=== PATIENT | male | born 1950 | race Caucasian/White ===

== ENCOUNTER 2019-09-23 18:38 | Inpatient (IN) | payer MEDICARE, OTHER ==
[~2019-09-23] VITALS: Ht 177.8 cm; Wt 86.2 kg
[2019-09-23] MEDS ORDERED: LISINOPRIL10 MG PO (19:10)
[2019-09-23] MEDS ORDERED: PRED FORTE (19:10)
[2019-09-23] MEDS ORDERED: METOPROLOL TART50 MG PO (19:10)
[2019-09-23] MEDS ORDERED: TRILIPIX135 MG PO (19:10)
[2019-09-23] MEDS ORDERED: PRAVASTATIN SOD40 MG PO (19:10)
[2019-09-23] MEDS ORDERED: ACYCLOVIR200 MG PO (19:10)
[2019-09-23] MEDS ORDERED: CENTRUM MEN'S1 EACH (19:10)
[2019-09-23] MEDS ORDERED: VITAMIN D32000 UNI1 (19:10)
[2019-09-23] MEDS ORDERED: DIATRIZOATE MEGL/DIATRIZOA SOD 30 ML BTL PO ONE (19:20)
[2019-09-23] MEDS ORDERED: ONDANSETRON HCL INJ 2MG/ML 2ML 2 MG/ML VIAL IV ONE (19:21)
[2019-09-23] MEDS ORDERED: SODIUM CHLORIDE 0.9% 1000ML 1,000 ML ONE (19:28)
[2019-09-23] MEDS ORDERED: ONDANSETRON HCL INJ 2MG/ML 2ML 2 MG/ML VIAL ONE (19:28)
[2019-09-23] MEDS ORDERED: SODIUM CHLORIDE 0.9% 1000ML 1,000 ML IV ONE (19:30)
[2019-09-23 19:47] LABS: BASOPHILS % 0.2 % (0.0-1.0); EOSINOPHILS % 0.3 % (0.0-6.0); HEMATOCRIT 39.7 % (38.2-49.6); HEMOGLOBIN 13.3 g/dL (14.0-18.0); LYMPHOCYTES # (AUTO) 0.7 (1.0-3.2); MEAN CORPUSCULAR HEMOGLOBIN 29.1 pg (28-32); MEAN CORPUSCULAR HGB CONC 33.5 g/dL (31-35); MEAN CORPUSCULAR VOLUME 86.9 fL (81-99); MONOCYTES # (AUTO) 0.6 (0.2-0.8); MONOCYTES % 6.8 % (4.4-11.3); NEUTROPHILS # (AUTO) 8.1 (2.1-6.9); NEUTROPHILS % 85.5 % (38.7-80.0); PLATELET COUNT 343 x10e3/uL (140-360); RED BLOOD COUNT 4.57 x10e6/uL (4.3-5.7); RED CELL DISTRIBUTION WIDTH 13.3 % (11.7-14.4)
[2019-09-23 20:02] LABS: ALANINE AMINOTRANSFERASE 21 IU/L (0-55); ALBUMIN 4.4 g/dL (3.5-5.0); ALBUMIN/GLOBULIN RATIO 1.4 (0.8-2.0); ALKALINE PHOSPHATASE 40 IU/L (40-150); ANION GAP 16.9 mmol/L (8-16); BLOOD UREA NITROGEN 24 mg/dL (7-26); BUN/CREATININE RATIO 13 (6-25); CALCIUM 10.4 mg/dL (8.4-10.2); CARBON DIOXIDE 20 mmol/L (22-29); CHLORIDE 103 mmol/L (98-107); CREATINE KINASE 444 IU/L (30-200); CREATININE, SERUM 1.79 mg/dL (0.72-1.25); EST GLOMERULAR FILTRATION RATE 38 ML/MIN (60-); GLUCOSE 170 mg/dL (74-118); POTASSIUM 3.9 mmol/L (3.5-5.1); SODIUM 136 mmol/L (136-145)
[2019-09-23 20:14] LABS: CLARITY,URINE SL CLOUDY (CLEAR); COLOR,URINE YELLOW (YELLOW); LEUKOCYTE ESTERASE ,URINE NEGATIVE (NEGATIVE); NITRITE,URINE NEGATIVE (NEGATIVE); URINE UROBILINOGEN 0.2 mg/dL (0.2 - 1)
[2019-09-23 20:15] LABS: BILIRUBIN,URINE NEGATIVE (NEGATIVE); KETONES,URINE NEGATIVE (NEGATIVE); PROTEIN,URINE DIPSTICK NEGATIVE (NEGATIVE)
[2019-09-23 20:25] LABS: BACTERIA,URINE FEW /HPF; EPITHELIAL CELLS,URINE FEW /LPF; MUCUS,URINE MODERATE (RARE)
--- NOTE | 2019-09-23 20:48 | Diagnostic Imaging Report ---
CT Abdomen And Pelvis with Intravenous Contrast INDICATION: Abdominal pain, ileostomy 9 years, total colectomy for ulcerative colitis, decreased stomal output. ^ABD PAIN ^[id number] ^2029 TECHNIQUE: Thin collimation axial images obtained from the diaphragm to the level of the pubic symphysis following the uneventful administration of 100 cc of low osmolar, nonionic intravenous contrast. Oral contrast was administered. Dose reduction techniques used: Automated exposure control, adjustment of the mAs and/or kVp according to patient size, standardized low-dose protocol, and/or iterative reconstruction technique. RADIATION DOSE: Total DLP: 443.57 mGy*cm Estimated effective dose: (DLP x 0.015 x size factor) mSv CTDIvol has been reviewed. It is below the limits set by the Radiation Protocol Committee (RPC). COMPARISON: None. ABDOMEN FINDINGS: Lung Bases: Clear. The visualized portions of the mediastinum are normal.. Liver: Normal attenuation. No evidence for mass. Gallbladder: Absent. No biliary ductal dilatation. Pancreas: Normal attenuation without mass or ductal dilatation. Spleen: Normal in size. No evidence of mass.. Adrenal Glands: No evidence for mass. Kidneys: Right: Normal enhancement. No soft tissue mass. No hydronephrosis. Left: Normal enhancement. No soft tissue mass. No hydronephrosis. Lymph Nodes: No enlarged abdominal or periaortic lymph nodes. Aorta: Normal in diameter with scattered calcifications PELVIS FINDINGS: Bowel: Stomach: Contains enteric contrast and is normal. Small Bowel: Enteric contrast reaches the mid small bowel. Distal small bowel loops leading to the stoma are distended with fluid to a diameter 2.8 cm. No mural thickening or abnormal mural enhancement. A parastomal hernia contains numerous small bowel loops. The small bowel loops are also distended with inflammation of the small bowel mesentery. No inspissated enteric contents. Large Bowel: Absent. Bladder: Normal. Prostate gland is mildly enlarged Peritoneum/retroperitoneum: No free fluid or fluid collection. Bones: Mild degenerative changes of the spine. There is a bone island in the left seventh rib. Soft tissues: Right lower quadrant ostomy with small bowel containing parastomal hernia. IMPRESSION: 1. Small bowel containing right lower quadrant parastomal hernia. Small bowel loops within the hernia and proximal to the hernia are distended with inflammation of the mesentery suggestive of partial small bowel obstruction. 2. Total colectomy and cholecystectomy. 3. Prostate hypertrophy. Signed by: Dr. Yared Winston MD on 09/23/2019 8:45 PM
[2019-09-23] MEDS ORDERED: ONDANSETRON HCL INJ 2MG/ML 2ML 2 MG/ML VIAL IV PRN (21:15)
[2019-09-23] MEDS ORDERED: MORPHINE SULFATE INJ 4 MG/ML INJ 1ML IV PRN (21:15)
[2019-09-23] MEDS ORDERED: BENZOCAINE 20% SPR 60 ML CAN MT ONE (21:30)
[2019-09-23] MEDS ORDERED: BENZOCAINE/TETRACAINE/BUTAMBEN AERO SPRAY 56 GM CAN ONE (21:31)
[2019-09-23] MEDS: SODIUM CHLORIDE 0.9% 250ML IRRIG IR SCH (21:41)
[2019-09-23] MEDS ORDERED: SODIUM CHLORIDE 0.9% 50ML 50 ML ONE (22:32)
[2019-09-23] MEDS ORDERED: IOPAMIDOL 370 MG/ML 200 ML INFUS..BTL INJ ONE (22:33)
--- NOTE | 2019-09-23 23:58 | NUR ---
patient placed in hospital bed for comfort
[2019-09-24] MEDS ORDERED: D5NS/KCL 20MEQ 1,000 ML IV ONE (00:15)
[2019-09-24] MEDS ORDERED: MORPHINE SULFATE 2 MG/ML SYR 1ML IV PRN (00:15)
[2019-09-24] MEDS: SODIUM CHLORIDE 0.9% 250ML IRRIG IR SCH ×6 (01:48→20:48)
[2019-09-24] MEDS: MORPHINE SULFATE INJ 4 MG/ML INJ 1ML IV PRN ×4 (02:40→15:30)
[2019-09-24] MEDS ORDERED: METOPROLOL TARTRATE INJ 1 MG/ML VIAL IV PRN (07:00)
--- NOTE | 2019-09-24 07:00 | NUR ---
medication administratrion clarification morphine sulfate 4mg iv given at 0244 12/10, pain scale 9/10, adult scale. medication reassesment done 0310, pain scale 4/10, adult scale.
--- NOTE | 2019-09-24 07:09 | NUR ---
REPORT GIVEN TO JACI BRUNO
--- NOTE | 2019-09-24 07:38 | NUR ---
assumed care of pt. Pt is requesting pain meds and c/o feeling warm at this time
[2019-09-24] MEDS: ONDANSETRON HCL INJ 2MG/ML 2ML 2 MG/ML VIAL IV PRN ×2 (07:55→15:30)
[2019-09-24] MEDS: PIPERACILLIN/TAZO 2.25 GM 50 ML IV SCH ×3 (07:55→20:48)
--- OUTSIDE RECORDS SUMMARY | 2019-09-24 08:32 | XMS REPORT ---
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 Allergies, Adverse Reactions, Alerts This patient has no known allergies or adverse reactions. Medications This patient has no known medications. Results Test Description Test Time Test Comments Text Results Atomic Results Result Comments CT ABDOMEN/PELVIS W 2019-09-23 20:39:00 [place] [address] Patient Name: ANEL LOPEZ MR #: [id number] : 1950 Age/Sex: 69/M Req #: [id number] [facility] Physician: Ordered by: SAIRA KENNEDY MD Report #: [id number] Location: ER Room/Bed: Procedure: [id number] CT/CT ABDOMEN/PELVIS W Exam Date: 09/23/19 Exam Time: 2029 REPORT STATUS: Signed CT Abdomen And Pelvis with Intravenous Contrast IN DICATION: Abdominal pain, ileostomy 9 years, total colectomy for ulcerative colitis, decreased stomal output. ABD PAIN [id number] TECHNIQUE: Thin collimation axial images obtained from the diaphragm to the level of the pubic symphysis following the uneventful administration of 100 cc of low osmolar, nonionic intravenous contrast. Oral contrast was administered. Dose reduction techniques used: Automated exposure control, adjustment of the mAs and/or kVp according to patient size, standardized low-dose protocol, and/or iterative reconstruction technique. RADIATION DOSE: Total DLP: 443.57 mGy*cm Estimated effective dose: (DLP x 0.015 x size factor) mSv CTDIvol has been reviewed. It is below the limits set by the Radiation Protocol Committee (RPC). COMPARISON: None. ABDOMEN FINDINGS: Lung Bases: Clear. The visualized portions of the mediastinum are normal.. Liver: Normal attenuation. No evidence for mass. Gallbladder: Absent. No biliary ductal dilatation. Pancreas: Normal attenuation without mass or ductal dilatation. Spleen: Normal in size. No evidence of mass.. Adrenal Glands: No evidence for mass. Kidneys: Right: Normal enhancement. No soft tissue mass. No hydronephrosis. Left: Normal enhancement. No soft tissue mass. No hydronephrosis. Lymph Nodes: No enlarged abdominal or periaortic lymph nodes. Aorta: Normal in diameter with scattered calcifications PELVIS FINDINGS: Bowel: Stomach: Contains enteric contrast and is normal. Small Bowel: Enteric contrast reaches the mid small bowel. Distal small bowel loops leading to the stoma are distended with fluid to a diameter 2.8 cm. No mural thickening or abnormal mural enhancement. A parastomal hernia contains numerous small bowel loops. The small bowel loops are also distended with inflammation of the small bowel mesentery. No inspissated enteric contents. Large Bowel: Absent. Bladder: Normal. Prostate gland is mildly enlarged Peritoneum/retroperitoneum: No free fluid or fluid collection. Bones: Mild degenerative changes of the spine. There is a bone island in the left seventh rib. Soft tissues: Right lower quadrant ostomy with small bowel containing parastomal hernia. IMPRESSION: 1. Small bowel containing right lower quadrant parastomal hernia. Small bowel loops within the hernia and proximal to the hernia are distended with inflammation of the mesentery suggestive of partial small bowel obstruction. 2. Total colectomy and cholecystectomy. 3. Prostate hypertrophy. Signed by: Dr. Kerri Winston MD on 09/23/2019 8:45 PM Dictated By: KERRI WINSTON MD 44 Transcribed By: JACI on 09/23/192044 COPY TO: SAIRA KENNEDY MD
[2019-09-24] MEDS ORDERED: FAMOTIDINE 20 MG/2 ML VIAL IV SCH (09:00)
[2019-09-24] MEDS ORDERED: SODIUM CHLORIDE 0.9% IV SCH ×2 (09:00→11:00)
[2019-09-24] MEDS ORDERED: ACYCLOVIR SODIUM IV SCH ×2 (09:00→11:00)
[2019-09-24 11:08] VITALS: BP 152/75
[2019-09-24] MEDS: KCL 20MEQ/.9 SOD CHL 1,000 ML IV SCH ×2 (12:13→18:06)
[2019-09-24] MEDS ORDERED: ABILIFY5 MG PO (13:50)
--- NOTE | 2019-09-24 14:13 | History and Physical ---
A 69-year-old male comes in with abdominal pain. HISTORY OF PRESENTING ILLNESS: This is a 69-year-old, Mr. Dale Arita with history of ulcerative colitis, status post ileostomy with colon resection, was in usual state of health until the patient had [place], [place] working, came back yesterday and ate at a barbecue place and immediately felt abdominal pain. The patient's pain was described as 8/10 in intensity. The patient came in and was found to have a small bowel obstruction and the patient admitted for the same. PAST MEDICAL HISTORY: History of ulcerative colitis, history of hypertension, history of atrial fibrillation, history of hyperlipidemia, and history of hypertension. MEDICATIONS: He takes at home are acyclovir 400 mg twice a day, cholecalciferol with vitamin D 2000 international units daily, Trilipix 135 mg daily, lisinopril 20 mg daily, metoprolol 50 mg 3 times a day, and the patient also takes pravastatin 40 mg daily. PAST SURGICAL HISTORY: History of pancolectomy with ileostomy. The patient has been followed up with colorectal surgeons downtown. The patient also sees Dr. Martínez for his ulcerative colitis. The patient's other surgical history includes tonsillectomy and cholecystectomy also. ALLERGIES: NO KNOWN DRUG ALLERGIES. REVIEW OF SYSTEMS: Negative for chest pain. No shortness of breath. Positive for some nausea. No vomiting. No diarrhea and no constipation. No bowel movements due to ileostomy. No diplopia. No blurry vision. PHYSICAL EXAMINATION: VITAL SIGNS: Temperature is 98.9, pulse 86, respirations of 18, blood pressure is 145/69, and pulse oximetry of 100%. HEENT: Normocephalic and atraumatic. NG tube in place. CVS: S1 and S2 normal. Regular rhythm. ABDOMEN: Tenderness in the peristomal area and also bowel sounds are very diminished. EXTREMITIES: No clubbing. No cyanosis. No edema. IMAGING STUDIES: Abdominal CT pelvis shows a small bowel containing right lower quadrant parastomal hernia, small bowel loops with hernia and proximal to intestine with inflammation of mesentery, suggestive of partial small bowel obstruction. Total colectomy and cholecystectomy, prostatic hypertrophy noticed. LABORATORY VALUES: White count is 9.43, hemoglobin of 13.3, and hematocrit of 39.7. Chemistry shows sodium of 136, potassium of 3.9, BUN of 24, creatinine of 1.79, glucose of 170, and kinase was 444. Troponin was negative. CK-MB was slightly elevated and lipase of 27. ASSESSMENT: A 69-year-old male with small bowel obstruction and parastomal hernia, history of ileostomy, history of hypertension and atrial fibrillation, and acute kidney injury. PLAN: Hydration was ongoing. The patient will be put on some metoprolol IV 2.5 mg 3 times a day for coverage for blood pressure. We will continue with NG tube. Consult with Dr. Bradly Crowe will be done. Further recommendation per clinical course. We will continue to monitor the patient. Also, DVT prophylaxis will be applied. Further recommendation per clinical course. We will continue to monitor the patient. MD MARI MelendezJ/MODL /[id number]
--- NOTE | 2019-09-24 16:24 | NUR ---
ARRIVED VIA FROM ER, AA&OX3, RA, NGT TO LIWS, PT DENIES PAIN AT THIS TIME, CALL LIGHT WITHIN REACH
[2019-09-24 16:43] VITALS: BP 183/86
[2019-09-24] MEDS: METOPROLOL TARTRATE INJ 1 MG/ML VIAL IV SCH (17:55)
--- NOTE | 2019-09-24 18:30 | NUR ---
MD Waylon PINA INTO SEE PT, DISCUSSED POC
--- NOTE | 2019-09-24 19:19 | NUR ---
IV TO L AC INFILTRATED, 2 ATTEMPTS FOR NEW IV, NO SUCCESS, WILL NOTIFY CHARGE
[2019-09-24 19:45] VITALS: BP 172/78
[2019-09-24 20:00] VITALS: BP 172/78
[2019-09-24] MEDS: FAMOTIDINE 20 MG/2 ML VIAL IV SCH (20:48)
[2019-09-24] MEDS: ACYCLOVIR SODIUM IV SCH (23:27)
[2019-09-24] MEDS: SODIUM CHLORIDE 0.9% IV SCH (23:27)
[2019-09-25] VITALS (8 sets, daily range): BP systolic 117–170; BP diastolic 68–85
[2019-09-25] MEDS: PIPERACILLIN/TAZO 2.25 GM 50 ML IV SCH ×4 (01:23→20:19)
[2019-09-25] MEDS: KCL 20MEQ/.9 SOD CHL 1,000 ML IV SCH ×3 (01:23→21:30)
[2019-09-25] MEDS: SODIUM CHLORIDE 0.9% 250ML IRRIG IR SCH ×6 (01:23→21:25)
[2019-09-25] MEDS: METOPROLOL TARTRATE INJ 1 MG/ML VIAL IV SCH ×4 (01:23→17:10)
[2019-09-25 06:21] LABS: BASOPHILS % 0.5 % (0.0-1.0); HEMOGLOBIN 13.6 g/dL (14.0-18.0); LYMPHOCYTES # (AUTO) 0.6 (1.0-3.2); LYMPHOCYTES % 15.5 % (18.0-39.1); MEAN CORPUSCULAR HEMOGLOBIN 28.5 pg (28-32); MEAN CORPUSCULAR HGB CONC 32.4 g/dL (31-35); MEAN CORPUSCULAR VOLUME 88.1 fL (81-99); MONOCYTES # (AUTO) 1.2 (0.2-0.8); MONOCYTES % 30.5 % (4.4-11.3); NEUTROPHILS # (AUTO) 2.1 (2.1-6.9); NEUTROPHILS % 52.2 % (38.7-80.0); PLATELET COUNT 294 x10e3/uL (140-360); RED BLOOD COUNT 4.77 x10e6/uL (4.3-5.7); RED CELL DISTRIBUTION WIDTH 13.9 % (11.7-14.4)
[2019-09-25 06:41] LABS: ALANINE AMINOTRANSFERASE 21 IU/L (0-55); ALBUMIN 3.3 g/dL (3.5-5.0); ALKALINE PHOSPHATASE 32 IU/L (40-150); ANION GAP 14.2 mmol/L (8-16); BLOOD UREA NITROGEN 16 mg/dL (7-26); BUN/CREATININE RATIO 14 (6-25); CARBON DIOXIDE 22 mmol/L (22-29); CHLORIDE 110 mmol/L (98-107); CREATININE, SERUM 1.13 mg/dL (0.72-1.25); EST GLOMERULAR FILTRATION RATE > 60 ML/MIN (60-); GLUCOSE 145 mg/dL (74-118); POTASSIUM 4.2 mmol/L (3.5-5.1); SODIUM 142 mmol/L (136-145)
--- NOTE | 2019-09-25 08:31 | Diagnostic Imaging Report ---
EXAM: ABDOMEN ACUTE SERIES W/PA CXR DATE: 09/25/2019 8:00 AM INDICATION: Small bowel obstruction COMPARISON: CT abdomen/pelvis from 09/23/2019 FINDINGS: The trachea is midline. The lungs are symmetrically expanded without evidence for large focal consolidation, pneumothorax, or significant pleural effusion. The cardiomediastinal silhouette is within normal limits. Enteric tube identified coursing below the diaphragm with distal tip terminating within the right midabdomen at the expected level of the pylorus/proximal duodenum. Mildly distended air-filled loops small bowel identified within the mid abdomen. No intraperitoneal free air is appreciated. Cholecystectomy clips noted within the right upper quadrant. High density material noted within the urinary bladder] reflecting excreted contrast from the recent prior CT examination. No acute osseous abnormality identified. IMPRESSION: No acute cardiopulmonary process identified. Mildly distended air-filled loops of small bowel identified within the mid abdomen compatible with patient's history of bowel obstruction. Signed by: Dr. Bonifacio Salguero MD on 09/25/2019 8:28 AM
[2019-09-25] MEDS: FAMOTIDINE 20 MG/2 ML VIAL IV SCH ×2 (09:01→21:25)
[2019-09-25] MEDS: ENALAPRILAT IV INJ 1.25 MG/ML VIAL IV SCH ×2 (09:02→17:09)
--- NOTE | 2019-09-25 09:33 | Progress Note ---
DATE: 09/25/2019 SUBJECTIVE: 69-year-old male that comes in with suspected small-bowel obstruction. The patient is currently having an NG tube. Pain is better. The patient's urine output is comparatively less according to him. No chest pain, no shortness of breath. Abdominal pain is better and the patient is on antibiotics. OBJECTIVE: VITAL SIGNS: Temperature is 97.0, pulse of 82, respirations of 19, blood pressure is 166/82, pulse oximetry of 96%. HEENT: Normocephalic and atraumatic. Nasogastric tube in place to intermittent suction. CVS: S1 and S2 normal. Regular rate and rhythm. ABDOMEN: Slightly distended. Parastomal hernias present. Bowel sounds are very sluggish. EXTREMITIES: No clubbing, no cyanosis, no edema. LABORATORY VALUES: White count is 3.94, hemoglobin of 13.6, hematocrit of 42.0. Chemistries are pending today. IMAGING: An abdominal series is ordered for today. ASSESSMENT: Mr. Dale Arita is with: 1. Small-bowel obstruction. 2. Parastomal hernias of the ileostomy. 3. Hypertension. 4. Coronary artery disease. 5. Hyperlipidemia. 6. Acute kidney injury. PLAN: 1. Repeat his creatinine today. If creatinine is on the higher level, increase his fluid resuscitation. 2. Continue with antibiotics. 3. Continue with antihypertensive. We will add lisinopril/Prinivil IV to the factor. Further recommendation per clinical course. The patient is progressing well. Hopefully, will do without surgery. MD RUSSELL Melendez/MODL /[id number]
[2019-09-25] MEDS: SODIUM CHLORIDE 0.9% IV SCH ×2 (11:45→23:17)
[2019-09-25] MEDS: ACYCLOVIR SODIUM IV SCH ×2 (11:45→23:17)
--- NOTE | 2019-09-25 18:22 | NUR ---
Patient lost second IV today and new one placed to right forearm by other RN.
--- NOTE | 2019-09-25 19:03 | NUR ---
Received report from previous nurse. patient in bed. Call light within reach.
[2019-09-26] VITALS (7 sets, daily range): BP systolic 124–145; BP diastolic 66–89
[2019-09-26] MEDS: METOPROLOL TARTRATE INJ 1 MG/ML VIAL IV SCH ×4 (00:01→17:25)
[2019-09-26] MEDS: PIPERACILLIN/TAZO 2.25 GM 50 ML IV SCH ×4 (01:44→20:00)
[2019-09-26] MEDS: SODIUM CHLORIDE 0.9% 250ML IRRIG IR SCH ×6 (01:44→20:15)
[2019-09-26] MEDS: KCL 20MEQ/.9 SOD CHL 1,000 ML IV SCH ×3 (02:20→11:36)
[2019-09-26 06:08] LABS: BASOPHILS % 0.6 % (0.0-1.0); EOSINOPHILS # (AUTO) 0.2 (0.0-0.4); EOSINOPHILS % 3.1 % (0.0-6.0); HEMATOCRIT 39.7 % (38.2-49.6); HEMOGLOBIN 12.8 g/dL (14.0-18.0); LYMPHOCYTES # (AUTO) 0.9 (1.0-3.2); MEAN CORPUSCULAR HEMOGLOBIN 28.7 pg (28-32); MEAN CORPUSCULAR HGB CONC 32.2 g/dL (31-35); MONOCYTES % 19.7 % (4.4-11.3); NEUTROPHILS % 58.2 % (38.7-80.0); PLATELET COUNT 279 x10e3/uL (140-360); RED BLOOD COUNT 4.46 x10e6/uL (4.3-5.7); RED CELL DISTRIBUTION WIDTH 13.6 % (11.7-14.4)
[2019-09-26 06:29] LABS: ANION GAP 11.7 mmol/L (8-16); BLOOD UREA NITROGEN 18 mg/dL (7-26); BUN/CREATININE RATIO 20 (6-25); CALCIUM 9.2 mg/dL (8.4-10.2); CARBON DIOXIDE 22 mmol/L (22-29); CHLORIDE 110 mmol/L (98-107); CREATININE, SERUM 0.88 mg/dL (0.72-1.25); EST GLOMERULAR FILTRATION RATE > 60 ML/MIN (60-); GLUCOSE 106 mg/dL (74-118); MAGNESIUM 2.2 MG/DL (1.3-2.1); POTASSIUM 3.7 mmol/L (3.5-5.1); SODIUM 140 mmol/L (136-145)
--- NOTE | 2019-09-26 07:14 | NUR ---
Gave report to oncoming nurse. Call light within reach. patient in bed.
--- NOTE | 2019-09-26 07:43 | NUR ---
Received patient, a/ox3, no resp distress, call light within reach, will monitor.
--- NOTE | 2019-09-26 08:47 | Progress Note ---
DATE: 09/26/2019 SUBJECTIVE: The patient is a 69-year-old male, who comes in small bowel obstruction and parastomal hernia of the ileostomy. The patient is currently feeling better. Had a small bowel movement in the ileostomy today. Bowel sounds are heard. The patient is feeling better. NGT to suction at this time. OBJECTIVE: VITAL SIGNS: Temperature is 97.4, pulse of 94, blood pressure is 133/79, pulse oximetry of 97%. HEENT: Normocephalic and atraumatic. NG tube to suction. CVS: S1 and S2, tachy. ABDOMEN: Nontender, nondistended, and parastomal hernia is present. Bowel sounds are very sluggish. Abdomen is otherwise ileostomy with some stool in it. EXTREMITIES: No clubbing, no cyanosis, no edema. LABORATORY VALUES: White count is 5.22, hemoglobin 12.8, hematocrit of 39.6. Chemistries yesterday, his BUN and creatinine were normal. Urine clear. ASSESSMENT: 1. Small bowel obstruction. 2. Parastomal hernias. 3. Hypertension. 4. Coronary artery disease. 5. Hyperlipidemia. 6. Acute kidney injury which is resolved. PLAN: Continue with antibiotic. We will do another serial KUB today. Increase his metoprolol dosing. We will continue monitor the patient. The patient's tube can be clamped, but we will have Dr. Crowe decide on this. Further recommendation per clinical course. If possible, the patient can start a clear liquid diet and progress on. Further recommendation per clinical course. MD RUSSELL Melendez/AMYL /[id number]
[2019-09-26] MEDS: FAMOTIDINE 20 MG/2 ML VIAL IV SCH ×2 (08:50→20:15)
[2019-09-26] MEDS: ENALAPRILAT IV INJ 1.25 MG/ML VIAL IV SCH ×2 (08:51→16:54)
--- NOTE | 2019-09-26 09:18 | Diagnostic Imaging Report ---
Abdomen, 1 view. History: Small bowel obstruction. Comparison: 09/25/2019 Findings: Nasogastric tube is unchanged in position. A single dilated loop of air-filled small bowel is noted in the left abdomen. There are no masses or abnormal calcifications. The osseous structures are intact. IMPRESSION: Slight improvement in small bowel obstruction. Signed by: Colton Corbin on 09/26/2019 9:15 AM
[2019-09-26] MEDS: SODIUM CHLORIDE 0.9% IV SCH ×2 (11:36→23:50)
[2019-09-26] MEDS: ACYCLOVIR SODIUM IV SCH ×2 (11:36→23:50)
--- NOTE | 2019-09-26 16:55 | NUR ---
Patient OOB to bathroom and them ambulated hallway, c/o bloating and gas resolved, no output from ileostomy as yet but NG tube output decreased from yesterday, about 350cc at this time, call light within reach, no c/o pains, will monitor.
--- NOTE | 2019-09-26 19:05 | NUR ---
Patient visited in room during nursing rounds. Patient alert and oriented x3. No distress or discomfort noted. Ileostomy noted on RLQ. NG tube to right nare and connected to LIWS draining greenish fluid. IVF (NS with 20meqKCl at 125ml/hr) running. Pt ambulatory in room prn. Call da silva within reach.
[2019-09-27] VITALS (9 sets, daily range): BP systolic 137–178; BP diastolic 59–82
[2019-09-27] MEDS: METOPROLOL TARTRATE INJ 1 MG/ML VIAL IV SCH ×4 (00:10→18:55)
[2019-09-27] MEDS: SODIUM CHLORIDE 0.9% 250ML IRRIG IR SCH ×6 (00:17→20:50)
[2019-09-27] MEDS: PIPERACILLIN/TAZO 2.25 GM 50 ML IV SCH ×4 (02:20→20:50)
[2019-09-27] MEDS: KCL 20MEQ/.9 SOD CHL 1,000 ML IV SCH ×3 (02:20→17:59)
--- NOTE | 2019-09-27 07:30 | NUR ---
Received the pt. in stable condition with ngt intact and functioning. The iv is patent and functioning. The pt. denies pain or discomfort.
[2019-09-27] MEDS: FAMOTIDINE 20 MG/2 ML VIAL IV SCH ×2 (09:31→20:50)
[2019-09-27] MEDS: ENALAPRILAT IV INJ 1.25 MG/ML VIAL IV SCH ×2 (09:32→17:58)
--- NOTE | 2019-09-27 10:19 | Progress Note ---
DATE: 09/27/2019 SUBJECTIVE: A 69-year-old male, who comes in with small bowel obstruction. NG tube is still in place. Today's KUB showed mild improvement of the small bowel obstruction, but the patient did not have any bowel movements in the ileostomy. Bowel sounds are positive. Currently feeling much better than yesterday. OBJECTIVE: VITAL SIGNS: Temperature is 96.6, pulse of 73, respirations of 16, blood pressure is 146/65, and pulse oximetry of 97%. HEENT: Normocephalic and atraumatic. Pupils are reactive to light and accommodation. CVS: S1 and S2 normal. Regular rate and rhythm. ABDOMEN: Nontender, nondistended. Bowel sounds are positive. Ileostomy in place. No fecal matter in the ostomy bag. EXTREMITIES: No clubbing, no cyanosis, no edema. LABORATORY STUDIES: White count today is 5.22, hemoglobin of 12.8, and hematocrit of 39.7. Chemistry shows sodium of 140, potassium of 3.7, BUN of 18, and creatinine of 0.88. IMAGING: None done today. Scheduled for KUB. ASSESSMENT: Mr. Arita with: 1. Small bowel obstruction: 2. Parastomal hernias. 3. Hypertension. 4. Coronary artery disease. 5. Hyperlipidemia. 6. Acute kidney injury, which is resolved. PLAN: Continue with antibiotics. Continue with fluids. Continue with IV blood pressure therapy. Continue to monitor the patient. Possible discontinuation of the NG tube today depending on Dr. Crowe's examination. Further recommendation per clinical course. We will continue to monitor the patient. The patient has been encouraged to walk and keep ambulating. MD RUSSELL Melendez/MODL /[id number]
[2019-09-27] MEDS: SODIUM CHLORIDE 0.9% IV SCH ×2 (11:00→23:26)
[2019-09-27] MEDS: ACYCLOVIR SODIUM IV SCH ×2 (11:00→23:26)
--- NOTE | 2019-09-27 13:40 | NUR ---
IMM explained to patient, patient signed, copy to chart, copy to patient.
--- NOTE | 2019-09-27 13:41 | NUR ---
During discussion with patient about imm, he is talking about if/when he needs surgery. He is wondering if he will be able to released to go see his surgeon downtown or if he is to transfer. Patient still has NGT, abd xray series just taken. Request made for nursing to d/w MD if initiating transfer is appropriate.
--- NOTE | 2019-09-27 13:50 | Diagnostic Imaging Report ---
EXAM: ABDOMEN ACUTE SERIES W/PA CXR DATE: 09/27/2019 INDICATION: Small bowel obstruction COMPARISON: CT abdomen/pelvis from 09/23/2019, abdominal series dated 09/25/2019, abdominal radiograph dated 09/26/2019 FINDINGS: The cardiomediastinal silhouette is stable in size and configuration. Bibasilar atelectasis is present. No focal consolidation or pleural effusion. A nasogastric tube is present with the distal catheter tip overlying the region of the gastric antrum. Mildly distended loops of small bowel are present with air-fluid level seen on the upright view. There is no free intraperitoneal air. Lower quadrant ostomy is identified. Patient status post cholecystectomy. No acute osseous abnormalities. IMPRESSION: Continued partial small bowel obstruction. Signed by: Hakeem Mendez MD on 09/27/2019 1:47 PM
--- NOTE | 2019-09-27 20:57 | NUR ---
Called Dr. Rene and informed him patient's BP elevated at 178/74. aware and ordered Hydralazine 10mg IV Q6hr prn for SBP > 170 and changed rate of IVF from 125ml/hr to 100ml/hr.
[2019-09-27] MEDS ORDERED: HYDRALAZINE HCL 20 MG/ML VIAL IV PRN (21:00)
[2019-09-28] VITALS (8 sets, daily range): BP systolic 120–186; BP diastolic 59–76
[2019-09-28] MEDS: METOPROLOL TARTRATE INJ 1 MG/ML VIAL IV SCH ×5 (00:20→23:42)
[2019-09-28] MEDS: SODIUM CHLORIDE 0.9% 250ML IRRIG IR SCH ×4 (01:30→13:10)
[2019-09-28] MEDS: PIPERACILLIN/TAZO 2.25 GM 50 ML IV SCH ×4 (02:00→19:24)
[2019-09-28] MEDS: KCL 20MEQ/.9 SOD CHL 1,000 ML IV SCH ×3 (03:52→19:25)
--- NOTE | 2019-09-28 06:40 | NUR ---
Dr. Rene spoke with CM and gave order to transfer downtown to [facility] to patient's colo-rectal surgeon: Dr. Janey Chau [phone]
--- NOTE | 2019-09-28 07:00 | NUR ---
BEDSIDE SHIFT REPORT RECEIVED FROM CHALK TESTER RN. PT DENIES NEEDS AT THIS TIME.
--- NOTE | 2019-09-28 07:51 | Diagnostic Imaging Report ---
EXAM: Abdomen 2 Views INDICATION: ^SBO ^[id number] ^[id number] COMPARISON: 09/27/2019 FINDINGS: Lines/tubes: Infradiaphragmatic NG/O G-tube with tip overlying the gastric body. Mild of stool in the colon. Mildly distended loops of small bowel with decreased air-fluid levels when compared to prior exam. No renal calculi. No abnormal soft tissue masses. Mild degenerative changes in the lumbar spine and pelvis. Right upper quadrant cholecystectomy clips. IMPRESSION: Persistent mild distention of the small bowel with decreased air-fluid levels may reflect improvement in small bowel obstruction. Signed by: Dr. Ayaka Marrero M.D. on 09/28/2019 7:48 AM
[2019-09-28] MEDS: FAMOTIDINE 20 MG/2 ML VIAL IV SCH ×2 (09:15→21:08)
--- NOTE | 2019-09-28 09:59 | NUR ---
Met with patient and he does agree to transfer to [facility], per his request to be back where his previous surgery was. His surgeons have retired ( Dr. Duke Palencia and Dr. Ríos) and he states Dr. Janey Chau is now seeing their patients. He stated he has not seen her. He is ambulatory in [facility], [facility], and NGT has recently been dc'd. He states there is no output in his ileostomy. Denies any pain, nausea or vomiting. has called answering service for Dr. Chau [phone]. Awaiting for return call.
--- NOTE | 2019-09-28 10:07 | NUR ---
On-call physician returned call. Report given. He will call Dr. Brown and call CM back
--- NOTE | 2019-09-28 10:24 | NUR ---
Dr. Ramos foundation coordinator for Dr. Brown returned call and they have denied acceptance of pt. He stated pt has been at this facility for 3 days and is receiving appropriate care here by surgeon. They have never seen the patient.
--- NOTE | 2019-09-28 10:47 | Progress Note ---
DATE: 09/28/2019 SUBJECTIVE: The patient is a 69-year-old gentleman who comes in with acute small-bowel obstruction. The patient has a status post ileostomy. The patient has no bowel movements in the ileostomy today. Bowel sounds are very sluggish. The patient continues to have no pain. The patient has been walking around. Fluid resuscitation has been given. The patient did get a dose of hydralazine yesterday. He did not feel well with it that the patient had tachycardia along with some feeling of anxiety with the hydralazine, which has been stopped. OBJECTIVE: VITAL SIGNS: Temperature is 97.3, pulse of 76, blood pressure is 168/74, and pulse oximetry of 97% on room air. HEENT: Normocephalic, atraumatic. NG tube in place, suction. CVS: S1 and S2 normal. Regular rate and rhythm. ABDOMEN: Nontender, nondistended. EXTREMITIES: No clubbing. No cyanosis and/or no edema. LABORATORY VALUES: None were done today. IMAGING STUDIES: Done today on the shows persistent mild distention of small bowel with decreased air-fluid levels may reflect improvement in his small bowel obstruction. ASSESSMENT: Dale Arita is a 69-year-old with, 1. Small-bowel obstruction. 2. Parastomal hernias. 3. Hypertension. 4. Hyperlipidemia. 5. History of Crohn disease in the past. PLAN: We will continue to monitor the patient. The patient wishes to go to [facility] with his colorectal group for possible surgery if indicated. A consult with Case Management has already been initiated. Continue with IV antibiotics. Continue with IV fluids. We will increase his Vasotec to q.6 hours to control his blood pressure. We will continue on the same dose of metoprolol IV for his rate control. The patient is on DVT prophylaxis. Further recommendation per clinical course. We will continue to monitor the patient and continue monitoring his labs in the morning. MD RUSSELL Melendez/AMYL /[id number]
--- NOTE | 2019-09-28 10:48 | NUR ---
Notified pt that he was denied acceptance. He agreed to stay here and have surgery here if needed. Notified Dr. Rene. Message left for Dr. Thad Crowe.
[2019-09-28] MEDS: ACYCLOVIR SODIUM IV SCH ×2 (11:00→23:41)
[2019-09-28] MEDS: SODIUM CHLORIDE 0.9% IV SCH ×2 (11:00→23:41)
--- NOTE | 2019-09-28 11:35 | NUR ---
Nutrition Intervention Note RD Recommendation(s) for Physician: -If unable to initiate PO intake within 24hr, rec Central PN (30% dextrose, 10% AA) @50mL/hr, providing 1200mL total volume/day, 180g dextrose, 60g protein. Total kcal including lipids of 25g/ daily 1077kcal/day -If no sign of refeeding syndrome after 48hr of TPN administration, consider increasing dextrose to 250 g/day to more adequately meet kcal needs. -BMP, Phos, Mag repeat daily; prealbumin, LFT, TG monitor weekly -BG check every 6 hr with corrective dose insulin -Continue with TPN per MD until diet is advanced and intake >50% -Advance diet as tolerated to GI soft Plan of Care: RD following, monitoring for tolerance and adequacy, PN rec Nutrition reason for involvement: NPO x [address] Assessment 09/28 - 69yo M, who was admitted for SBO. KUB showed improvement in SBO. Witnessed pt ambulating independently on the hallway. NPO x 4 days. +NGT to LIWS. No BM from ileostomy yet. Pt denied any flatus. Pt stated that he will need surgery (?). Prior to admission, pt was eating and drinking well. Pt has lost over 40lbs intentionally through lifestyle changes. No other complains at this time. Will continue to monitor and follow. Principal Problems/Diagnoses: SBO PMH: ulcerative colitis, hypertension, atrial fibrillation, hyperlipidemia, and hypertension. GI: + NGT, ileostomy Skin: no pressure ulcer noted Labs: (09/28) Cl 110 H, Mg 2.2 H Meds: pepcid, NaCl, lopressor, KCl Ht: 70in Wt: 191lb BMI: 27.4kg/m2 IBW: 166lb +/- 10% Malnutrition Evaluation (09/28/2019) The patient does not meet criteria for a specified degree of malnutrition at this time. Will re-evaluate at follow-up as appropriate. Energy intake: NPO x 4 days Weight loss: No weight loss reported Fat loss: no loss identified Muscle loss: no loss identified Supporting Evidence: Fluid accumulation: no accumulation identified Functional Status: no changes Nutrition Prescription (Diet Order): NPO Estimated Nutritional Needs: Calories: 2175 2610kcal(25-30kcal/kg/d) Weight used: CBW Protein: 87 104g (1-1.5g/kg/d) Weight used: CBW Diet Adequacy: Not meeting calorie needs, Not meeting protein needs Tolerance: N/A Diet Education Needs Assessment: Diet education indicated, but patient not appropriate for education at this time. Nutrition Care Level: moderate Nutrition Diagnosis: Altered GI function related to SBO as evidenced by pt requiring PN as main source of nutrition. Goal: Patient will meet 75-100% of estimated needs by follow up Progress: Not Progressing Interventions: Composition, Rate, Route, IVF, Prescription medications Monitoring/Evaluation: Total energy intake, Total protein intake, Formula/Solution, IVF, Prescription medication, Weight change Signed: Jeni Ball, MS, RD, LD
[2019-09-28] MEDS: ENALAPRILAT IV INJ 1.25 MG/ML VIAL IV SCH ×3 (12:13→23:43)
--- NOTE | 2019-09-28 13:29 | NUR ---
NG TUBE DC'D. PT TOLERATED.
[2019-09-29] VITALS (8 sets, daily range): BP systolic 115–155; BP diastolic 56–84
[2019-09-29] MEDS: PIPERACILLIN/TAZO 2.25 GM 50 ML IV SCH ×4 (01:19→19:30)
[2019-09-29] MEDS: METOPROLOL TARTRATE INJ 1 MG/ML VIAL IV SCH ×4 (05:46→23:29)
[2019-09-29] MEDS: ENALAPRILAT IV INJ 1.25 MG/ML VIAL IV SCH ×4 (05:47→23:30)
[2019-09-29 06:28] LABS: BASOPHILS # (AUTO) 0.1 (0.0-0.1); BASOPHILS % 0.6 % (0.0-1.0); EOSINOPHILS # (AUTO) 0.2 (0.0-0.4); EOSINOPHILS % 2.8 % (0.0-6.0); HEMATOCRIT 37.4 % (38.2-49.6); LYMPHOCYTES # (AUTO) 1.2 (1.0-3.2); LYMPHOCYTES % 13.5 % (18.0-39.1); MEAN CORPUSCULAR HEMOGLOBIN 28.6 pg (28-32); MEAN CORPUSCULAR HGB CONC 32.1 g/dL (31-35); MONOCYTES # (AUTO) 1.2 (0.2-0.8); MONOCYTES % 13.5 % (4.4-11.3); NEUTROPHILS % 68.8 % (38.7-80.0); PLATELET COUNT 320 x10e3/uL (140-360); RED CELL DISTRIBUTION WIDTH 13.3 % (11.7-14.4)
[2019-09-29 06:49] LABS: ANION GAP 17.9 mmol/L (8-16); BLOOD UREA NITROGEN 15 mg/dL (7-26); BUN/CREATININE RATIO 17 (6-25); CALCIUM 9.2 mg/dL (8.4-10.2); CARBON DIOXIDE 17 mmol/L (22-29); CHLORIDE 108 mmol/L (98-107); CREATININE, SERUM 0.89 mg/dL (0.72-1.25); EST GLOMERULAR FILTRATION RATE > 60 ML/MIN (60-); GLUCOSE 74 mg/dL (74-118); POTASSIUM 3.9 mmol/L (3.5-5.1); SODIUM 139 mmol/L (136-145)
--- NOTE | 2019-09-29 07:00 | NUR ---
BEDSIDE SHIFT REPORT RECEIVED FROM DIRECTOR OF PERIOPERATIVE SERVICES RN. PT DENIES NEEDS AT THIS TIME.
[2019-09-29] MEDS: FAMOTIDINE 20 MG/2 ML VIAL IV SCH ×2 (08:46→21:05)
--- NOTE | 2019-09-29 09:34 | Progress Note ---
DATE: 09/29/2019 SUBJECTIVE: The patient is a 69-year-old male with a history of small-bowel obstruction. The patient had his NG tube removed yesterday. The patient is feeling better. Bowel sounds are positive. No movement in the ileostomy bag yet. Currently, patient is asymptomatic. No chest pain. No shortness of breath. Blood pressure has been stable. MEDICATIONS: The patient is on Vasotec 1.25 mg q.6, metoprolol 2.5 q.6, Zosyn q. 8 hours, acyclovir q. 12 hours, and morphine sulfate as needed for pain control. OBJECTIVE: VITAL SIGNS: Temperature is 96.5, pulse of 101, blood pressure is 139/66. HEENT: Normocephalic, atraumatic. There is no icterus present. CVS: S1 and S2 normal. Regular rate and rhythm. ABDOMEN: Nondistended. Positive for some tenderness is present in the peristomal area. Bowel sounds are positive, but very sluggish. EXTREMITIES: No clubbing, no cyanosis, no edema. LABORATORY VALUES: Pending today. Yesterday's chemistries showed a sodium of 140. BUN and creatinine are 18 and 0.8. Magnesium is 2.2. ASSESSMENT: A 69-year-old Mr. Dale Arita with: 1. Small bowel obstruction. 2. Parastomal hernias. 3. Hypertension. 4. Hyperlipidemia. 5. History of Crohn disease. PLAN: Continue to monitor his lytes. The patient is on clear liquid diet at this time. Consult with Dr. Crowe is ongoing. We will continue to monitor the patient. Vasotec has been increased and metoprolol is used for rate control. For further information, look in the chart for medicines. MD RUSSELL Melendez/AMYL /[id number]
[2019-09-29] MEDS: KCL 20MEQ/.9 SOD CHL 1,000 ML IV SCH ×2 (11:20→19:30)
[2019-09-29] MEDS: ACYCLOVIR SODIUM IV SCH ×2 (11:30→23:21)
[2019-09-29] MEDS: SODIUM CHLORIDE 0.9% IV SCH ×2 (11:30→23:21)
--- NOTE | 2019-09-29 14:45 | NUR ---
Visit made by the Spiritual Care Department Pastoral Visitor, Sheng Carrillo. PV provided pastoral presence, hospitality, and supportive listening. Pastoral Visitor informed pt/family of the scope of [employer] [facility] and availability. MARIXA PARKER Financial Professional Spiritual Care Department O: [phone] Pager: [phone] ([phone] number calling from)
[2019-09-30] VITALS (9 sets, daily range): BP systolic 120–152; BP diastolic 65–93
[2019-09-30] MEDS: PIPERACILLIN/TAZO 2.25 GM 50 ML IV SCH ×4 (02:08→21:00)
[2019-09-30] MEDS: KCL 20MEQ/.9 SOD CHL 1,000 ML IV SCH ×2 (03:22→16:04)
[2019-09-30] MEDS: ENALAPRILAT IV INJ 1.25 MG/ML VIAL IV SCH ×3 (05:16→18:00)
[2019-09-30] MEDS: METOPROLOL TARTRATE INJ 1 MG/ML VIAL IV SCH ×3 (05:16→18:00)
--- NOTE | 2019-09-30 06:46 | Progress Note ---
DATE: 09/30/2019 SUBJECTIVE: 69-year-old gentleman who comes in with a small bowel obstruction. The patient is currently asymptomatic, pain free. Has been moving around and walking around. The patient had some amount of residual fecal matter from the ileostomy. OBJECTIVE: VITAL SIGNS: Currently, temperature 96.7, pulse of 93, respirations of 22, and blood pressure is 126/93. GENERAL: Alert and oriented x3. HEENT: Normocephalic and atraumatic. No pallor and no icterus present. CVS: S1 and S2 normal. Regular rate and rhythm. ABDOMEN: Nontender and nondistended. The patient has some bowel sounds. Ileostomy with matter in it. EXTREMITIES: No clubbing, no cyanosis, and no edema. IMAGING: Imaging studies on the 09/28/2019 shows persistent mild distention, but improvement in small-bowel obstruction. ASSESSMENT: 1. Small bowel obstruction. 2. Parastomal hernias. 3. Hypertension. 4. Hyperlipidemia. PLAN: Continue to monitor his lytes. The patient is on water. We will advance to clear liquid diet if it is okay with Dr. Bradly Crowe. Continue metoprolol for rate control. We will do labs tomorrow. Yesterday's labs; hemoglobin is 12 and hematocrit 37.4. Sodium is 139, BUN is 15, creatinine 0.89, and magnesium is 1.9. For further information, look in the chart. MD RUSSELL Melendez/MODL /[id number]
[2019-09-30] MEDS: FAMOTIDINE 20 MG/2 ML VIAL IV SCH ×2 (08:22→21:00)
[2019-09-30] MEDS: ACYCLOVIR SODIUM IV SCH ×2 (12:00→23:30)
[2019-09-30] MEDS: SODIUM CHLORIDE 0.9% IV SCH ×2 (12:00→23:30)
[2019-09-30] MEDS: MORPHINE SULFATE INJ 4 MG/ML INJ 1ML IV PRN (17:26)
[2019-10-01] VITALS (8 sets, daily range): BP systolic 116–174; BP diastolic 65–88
[2019-10-01] MEDS: KCL 20MEQ/.9 SOD CHL 1,000 ML IV SCH ×2 (00:40→12:52)
[2019-10-01] MEDS: PIPERACILLIN/TAZO 2.25 GM 50 ML IV SCH ×4 (01:52→20:20)
[2019-10-01] MEDS: METOPROLOL TARTRATE INJ 1 MG/ML VIAL IV SCH ×4 (06:00→18:37)
[2019-10-01] MEDS: ENALAPRILAT IV INJ 1.25 MG/ML VIAL IV SCH ×4 (06:00→18:40)
[2019-10-01 06:21] LABS: BASOPHILS % 0.4 % (0.0-1.0); EOSINOPHILS # (AUTO) 0.2 (0.0-0.4); EOSINOPHILS % 3.4 % (0.0-6.0); HEMATOCRIT 34.6 % (38.2-49.6); HEMOGLOBIN 11.5 g/dL (14.0-18.0); LYMPHOCYTES % 14.1 % (18.0-39.1); MEAN CORPUSCULAR HEMOGLOBIN 28.6 pg (28-32); MEAN CORPUSCULAR HGB CONC 33.2 g/dL (31-35); MEAN CORPUSCULAR VOLUME 86.1 fL (81-99); MONOCYTES # (AUTO) 0.9 (0.2-0.8); MONOCYTES % 13.8 % (4.4-11.3); NEUTROPHILS # (AUTO) 4.6 (2.1-6.9); NEUTROPHILS % 66.8 % (38.7-80.0); PLATELET COUNT 334 x10e3/uL (140-360); RED BLOOD COUNT 4.02 x10e6/uL (4.3-5.7); RED CELL DISTRIBUTION WIDTH 13.2 % (11.7-14.4)
[2019-10-01 06:37] LABS: ANION GAP 13.8 mmol/L (8-16); BLOOD UREA NITROGEN 8 mg/dL (7-26); BUN/CREATININE RATIO 9 (6-25); CALCIUM 8.9 mg/dL (8.4-10.2); CARBON DIOXIDE 23 mmol/L (22-29); CHLORIDE 109 mmol/L (98-107); CREATININE, SERUM 0.91 mg/dL (0.72-1.25); EST GLOMERULAR FILTRATION RATE > 60 ML/MIN (60-); GLUCOSE 94 mg/dL (74-118); POTASSIUM 3.8 mmol/L (3.5-5.1); SODIUM 142 mmol/L (136-145)
--- NOTE | 2019-10-01 07:31 | Progress Note ---
DATE: 10/01/2019 SUBJECTIVE: The patient is a 69-year-old male who comes in with small bowel obstruction. The patient continues to have abdominal distention. With some clear liquids yesterday or with fluids yesterday, the patient had abdominal pain. No production of stool in the ileostomy bag either. The patient continues to have some pain in the periumbilical area. No chest pain. No shortness of breath. OBJECTIVE: VITAL SIGNS: The patient's temperature is 96.7, pulse of 64, respirations 19, and blood pressure is 142/65. HEENT: Normocephalic and atraumatic. Pupils are reactive to light and accommodation. CVS: S1 and S2 normal. Regular rate and rhythm. ABDOMEN: Tender in the periumbilical area. Parastomal hernia present. Ileostomy bag with some residue. EXTREMITIES: No clubbing, no cyanosis, no edema. LABORATORY VALUES: Pending. The patient's white count is pending. Sodium is 142 and potassium 3.8. BUN and creatinine are normal. ASSESSMENT: Mr. Dale Arita is with small bowel obstruction. The patient is possibly scheduled for surgery depending on his distention and his abdominal progress for hypertension and hyperlipidemia. We will continue with his IV medications and we will request Dr. Rehman for Cardiology consult in lieu of possible surgery. Further recommendations per clinical course. MD RUSSELL Melendez/AMYL /[id number]
[2019-10-01] MEDS: FAMOTIDINE 20 MG/2 ML VIAL IV SCH ×2 (10:00→21:00)
--- NOTE | 2019-10-01 16:40 | Consultation ---
DATE OF CONSULTATION: 10/01/2019 CHIEF COMPLAINT: Partial small-bowel obstruction. HISTORY OF PRESENT ILLNESS: Mr. Dale Arita is a 69-year-old male with primary history of hypertension, paroxysmal AFib, ulcerative colitis, status post ileostomy with colon resection, who presented to the ED complaining of abdominal pain after eating barbecue meal at a restaurant. The patient described the pain as sharp and radiating to his back. He also had abdominal distention and the patient vomited on arrival to ED. According to the patient, he emptied his ileostomy 8 times every day and that day, he emptied 4 times prior to eating the barbecue meal. The patient is now admitted for small bowel obstruction. PAST MEDICAL HISTORY: History of ulcerative colitis, hypertension, atrial fibrillation, and hyperlipidemia. PAST SURGICAL HISTORY: Pancolectomy with ileostomy, tonsillectomy, and cholecystectomy. REVIEW OF SYSTEMS: Negative for chest pain, negative for shortness of breath, or dyspneic on exertion. Negative palpitations. Positive for nausea and vomiting. No diarrhea. Positive abdominal pain and no bowel movements due to ileostomy. MEDICATIONS: He is on Zosyn, metoprolol, acyclovir, famotidine, enalapril, and Zofran. PHYSICAL EXAMINATION: VITAL SIGNS: Temperature 98.4, pulse 68, BP is 127/71, respirations 21, and SpO2 is 97% on room air. HEENT: Normocephalic and atraumatic. NECK: Supple and negative JVD. LUNGS: Clear to auscultation bilaterally. CARDIOVASCULAR: S1 and S2 audible. A 2/6 murmur. ABDOMEN: Tenderness in peristomal area and bowel sounds are very diminished. EXTREMITIES: No cyanosis, no edema, no clubbing. IMAGING STUDIES: Abdominal CT pelvis shows small bowel containing right lower quadrant parastomal hernia, small bowel loops with hernia and proximal to intestine with inflammation of mesentery, suggestive of partial bowel obstruction. Total colectomy and cholecystectomy, and prostatic hypertrophy noticed. LABORATORY DATA: WBC 6.81, hemoglobin 11.5, hematocrit 34.6, platelets 334,000. Sodium 142, K 3.8, chloride 109, CO2 of 23, BUN 8, creatinine 0.91, glucose is 94. Troponin was negative. CK-MB was slightly elevated and lipase of 27. IMPRESSION AND PLAN: Paroxysmal atrial fibrillation treatment, the patient is currently in normal sinus rhythm, no chest pain and no dyspnea. Blood pressure is now well controlled. The patient is cleared for surgery from cardiac standpoint. Thank you for this consultation. We will continue to follow. Dictated by Lilliam Mares, SAL[place] MD OFELIA Powers/YASH /[id number]
[2019-10-01] MEDS ORDERED: ENOXAPARIN SOD INJ 40 MG/0.4 ML SYR SC SCH (17:00)
--- NOTE | 2019-10-01 19:20 | NUR ---
Received nursing report from morning nurse. Pt coming from shower. Pt alert to name, lying in bed HOB 45 degrees. Denies pain at this time. Pt stated ready for surgery tomorrow. Bed low and locked, call da silva within reach.
[2019-10-01] MEDS ORDERED: MORPHINE SULFATE INJ 4 MG/ML INJ 1ML IV PRN (23:45)
[2019-10-02] VITALS (8 sets, daily range): BP systolic 106–157; BP diastolic 61–89
[2019-10-02] MEDS: PIPERACILLIN/TAZO 2.25 GM 50 ML IV SCH ×3 (02:00→14:45)
[2019-10-02] MEDS: ENALAPRILAT IV INJ 1.25 MG/ML VIAL IV SCH ×4 (06:00→17:58)
[2019-10-02] MEDS: METOPROLOL TARTRATE INJ 1 MG/ML VIAL IV SCH ×4 (06:00→17:57)
--- NOTE | 2019-10-02 07:00 | NUR ---
BEDSIDE SHIFT REPORT RECEIVED FROM CRITICAL CARE NURSE RN. PT DENIES NEEDS AT THIS TIME.
--- NOTE | 2019-10-02 07:05 | NUR ---
Report given to morning nurse. Pt lying in bed watching TV, family at bedside. No acute distress noted.
[2019-10-02] MEDS: KCL 20MEQ/.9 SOD CHL 1,000 ML IV SCH ×2 (07:20→14:46)
[2019-10-02] MEDS: FAMOTIDINE 20 MG/2 ML VIAL IV SCH (08:12)
--- NOTE | 2019-10-02 09:54 | Progress Note ---
DATE: 10/02/2019 SUBJECTIVE: The patient is 69-year-old who came with small bowel obstruction. The patient is scheduled to have surgery today for small bowel obstruction. Conservative therapy with IV fluids and NG tube was not successful. The patient is scheduled for surgery with Dr. Crowe today. Currently, the patient is stable. No chest pain. No shortness of breath. MEDICATIONS: Metoprolol, Zosyn, potassium, and Vasotec 1.25 mg q.6 hours. OBJECTIVE: VITAL SIGNS: Stable. Temperature 96.1, pulse of 95, respirations of 18, blood pressure is 116/89, and pulse oximetry of 97%. HEENT: Normocephalic, atraumatic. Pupils are reactive to light and accommodation. CVS: S1 and S2 normal. Regular rate and rhythm. ABDOMEN: Tender around the hernia and negative for bowel sounds. ASSESSMENT: A 69-year-old gentleman with history of paroxysmal atrial fibrillation, history of hypertension, and history of hyperlipidemia, scheduled for surgery for small bowel obstruction today. We will continue with IV medication and Cardiology has cleared the patient for surgery. Donald Rene MD ASJ/MODL /[id number]
--- NOTE | 2019-10-02 12:43 | NUR ---
Nutrition Intervention Note RD Recommendation(s) for Physician: -If unable to initiate PO intake within 24hr, rec central PN if medically feasible (30% dextrose, 10% AA) at 42mL/hr, providing 1008 mL total volume/day, 151g dextrose, 50g protein. -Recommend to advance as tolerated pending lab values. -IVF management per MD. -Recommend obtain TG level, if WNL consider addition of lipids 25 gm/day (-W-) - Recommend to BMP, Phos, Mag repeat daily; pt may be at risk for re-feeding syndrome. -BG check every 6 hr with corrective dose insulin -Continue with TPN per MD until diet is advanced and intake >50% -Advance diet as tolerated to GI soft Plan of Care: RD following, monitoring for tolerance and adequacy, PN rec Nutrition reason for involvement: Follow up RD Assessment 10/02: Follow up: Pt was seen resting in bed with family at bedside. Pt reported he was started on liquids yesterday but did not tolerate them well. He stated he is not dealing with any N/V currently and has yet to have a BM. Plan is for surgery today NGT and IV fluids was not successful. Spoke to nurse regarding initiation of TPN d/t the pts minimal intake, nurse reported he would speak with the MD. Will continue to monitor. 09/28 - 69yo M, who was admitted for SBO. KUB showed improvement in SBO. Witnessed pt ambulating independently on the hallway. NPO x 4 days. +NGT to LIWS. No BM from ileostomy yet. Pt denied any flatus. Pt stated that he will need surgery (?). Prior to admission, pt was eating and drinking well. Pt has lost over 40lbs intentionally through lifestyle changes. No other complains at this time. Will continue to monitor and follow. Principal Problems/Diagnoses: SBO PMH: ulcerative colitis, hypertension, atrial fibrillation, hyperlipidemia, and hypertension. GI: ileostomy, Tender around the hernia and negative for bowel sounds. Skin: no pressure ulcer noted Labs: 10/02: no new labs 10/01: Na 142, K 3.8, Cl 109, CO2 23, BUN 8, Creat .91, Gluc 94, Ca 8.9 (09/28) Cl 110 H, Mg 2.2 H Meds: pepcid,lopressor, KCl , zofran, Ht: 70in Wt: 191lb BMI: 27.4kg/m2 IBW: 166lb +/- 10% Malnutrition Evaluation (09/28/2019) The patient does not meet criteria for a specified degree of malnutrition at this time. Will re-evaluate at follow-up as appropriate. Energy intake: NPO x 4 days Weight loss: No weight loss reported Fat loss: no loss identified Muscle loss: no loss identified Supporting Evidence: Fluid accumulation: no accumulation identified Functional Status: no changes Nutrition Prescription (Diet Order): NPO Estimated Nutritional Needs: Calories: 2175 2610kcal (25-30kcal/kg/d) Weight used: CBW Protein: 87 104g (1-1.5g/kg/d) Weight used: CBW Diet Adequacy: Not meeting calorie needs, Not meeting protein needs Tolerance: Not tolerating po Diet Education Needs Assessment: Diet education indicated, but patient not appropriate for education at this time. Nutrition Care Level: mod Nutrition Diagnosis: Altered GI function related to SBO as evidenced by pt requiring PN as main source of nutrition. Goal: Patient will meet 75-100% of estimated needs by follow up Progress: Not Progressing Interventions: Composition, Rate, Route, IVF, Prescription medications, modified diet (fiber) Monitoring/Evaluation: Total energy intake, Total protein intake, Formula/Solution, IVF, Prescription medication, Weight change Signed: Vera Barba RD, LD
--- NOTE | 2019-10-02 17:58 | NUR ---
PT OFF THE FLOOR AT THIS TIME TO OR.
[2019-10-02] MEDS ORDERED: DESFLURANE 240 ML BTL INH ONE (18:26)
[2019-10-02] MEDS ORDERED: ROCURONIUM BROMIDE 10 MG/ML 5ML VIAL ONE (18:26)
[2019-10-02] MEDS ORDERED: LIDOCAINE HCL 2% LOCAL INJ 5 ML SDV VIAL INJ ONE (18:26)
[2019-10-02] MEDS ORDERED: PROPOFOL IV EMULSION 10 MG/ML 20 ML VIAL ONE (18:26)
[2019-10-02] MEDS ORDERED: SUCCINYLCHOLINE CHLORIDE 20 MG/ML 10ML VIAL ONE (18:26)
[2019-10-02] MEDS ORDERED: MIDAZOLAM HCL 2 MG/2 ML VIAL ONE (18:55)
[2019-10-02] MEDS ORDERED: KETAMINE HCL INJ 50 MG/ML 10 ML VIAL ONE (18:55)
[2019-10-02] MEDS ORDERED: FENTANYL CITRATE/PF 100MCG/2 ML INJ ONE (18:55)
[2019-10-02] MEDS ORDERED: HYDROMORPHONE 1MG/1ML INJ IV PRN (21:00)
[2019-10-02] MEDS ORDERED: ACETAMINOPHEN 1000 MG/100 ML IV PRN (21:00)
[2019-10-02] MEDS ORDERED: HYDROMORPHONE 2MG/ML 2 MG/ML ML ONE (21:11)
--- NOTE | 2019-10-02 21:45 | NUR ---
Received the patient from pacu in a hospital bed.ng tube to right nares in low contd.wall suction.iv fluid running to right for arm.ernst in place.aaox3.no resp.distress.pain voiced /.dressing to abdomen is dry.new ileostomy bag to left side.bed locked and in lowest position.phone and call light within reach.instructed to call for assistance as needed.
[2019-10-02] MEDS: PANTOPRAZOLE 40 MG 10ML VIAL IV SCH (21:51)
[2019-10-02] MEDS: ONDANSETRON HCL INJ 2MG/ML 2ML 2 MG/ML VIAL IV PRN (21:51)
[2019-10-02] MEDS: SODIUM CHLORIDE 0.9% 250ML IRRIG IR SCH (21:52)
[2019-10-02] MEDS: DEXTROSE 5%/LACTATED RINGERS 1,000 ML IV SCH (21:52)
--- NOTE | 2019-10-02 22:22 | NUR ---
V/S STABLE.MEDICATED WITH DILAUDID 0.5 MG IV.PT IS STATING NO RELIEF FROM PAIN.NOTIFIED TO .RECEIVED NEW ORDERS.KEEP MONITOR THE PT.
[2019-10-02] MEDS: PIPER-TAZ 3.375 GM 50 ML IV SCH (23:34)
[2019-10-03] VITALS (8 sets, daily range): BP systolic 109–137; BP diastolic 56–76
[2019-10-03] MEDS: METRONIDAZOLE 500MG/NS 100ML 100 ML IV SCH ×4 (00:13→17:59)
[2019-10-03] MEDS: HYDROMORPHONE 1MG/1ML INJ IV PRN ×7 (01:01→20:35)
[2019-10-03] MEDS: SODIUM CHLORIDE 0.9% 250ML IRRIG IR SCH ×6 (01:01→20:39)
--- NOTE | 2019-10-03 03:11 | Operative Report ---
DATE OF PROCEDURE: 10/02/2019 SURGEON: Bradly Crowe MD PREOPERATIVE DIAGNOSIS: Strangulated parastomal hernia with small bowel obstruction. POSTOPERATIVE DIAGNOSIS: Strangulated parastomal hernia with small bowel obstruction with gangrenous changes of the distal ileum. OPERATIONS PERFORMED: Exploratory laparotomy, small-bowel resection, takedown of old ileostomy with reposition of ileostomy to left lower quadrant and repair of parastomal hernia. ELECTROGALVANIZING MACHINE OPERATOR: Venkatesh Crowe MD and CJ Grace. ANESTHESIA: General. COMPLICATIONS: None. ESTIMATED BLOOD LOSS: 50 mL. DESCRIPTION OF PROCEDURE: With the patient lying in bed in the supine position under good general endotracheal anesthesia. The abdomen was prepped with Betadine solution and draped in the usual manner. An elliptical incision was made around the ileostomy in the right lower quadrant. Incision was carried down into the subcutaneous tissue and the hernia sac was then identified and followed all the way down to the fascia. The fascia was then dissected all the way around the hernia sac. The hernia sac was then opened and immediately became evident. There was one loop of bowel of the terminal ileum that was strangulated in the hernia. The wall of the bowel at that point was rather thinned out and showing gangrenous changes with impending rupture. We decided to go ahead and resect the distal segment of the bowel, which was only a small amount, perhaps 6 or 8 inches of small bowel. The small bowel was then mobilized up into the wound and at a level where it appeared to be normal looking. It was divided with JAYCOB stapler and the mesentery was ligated with 2-0 silk. After this was done, there was some adhesions near the midline from the patient's old surgery and this was slowly and carefully taken down going through the hernia defect in the right lower quadrant. We managed to clear up all of the adhesions so that we could actually have access to the left lower quadrant to move the ileostomy to the left lower quadrant. Once this was done and we had that area cleared up, then a small button of skin in the left lower quadrant at the same level as the old ileostomy was then taken and a cruciate incision was carried down through the rectus fascia. The rectus muscle was retracted and the posterior rectus sheath was opened and the terminal ileum was then brought across the abdomen into the left lower quadrant and brought out without any tension whatsoever. Once this was done, the whole ileostomy site was then irrigated. Hemostasis was ascertained and the wound was then closed in layers. The peritoneum was closed with a running suture of #1 Vicryl. The hernia defect was closed with interrupted [id number] of #1 Prolene. The subcutaneous tissue was approximated with 2-0 Vicryl and the skin was closed with clips. After this was done, the ileostomy in the left lower quadrant was then matured using interrupted sutures of 3-0 Vicryl, given as a nice everted button. Dressings and an appliance were placed. Sponge, lap, and needle count was correct. The patient tolerated the procedure well and returned to the recovery room in stable condition. MD DEBRA Gold/YASH /[id number] MTDD
--- NOTE | 2019-10-03 04:00 | NUR ---
Resting in the bed in a stable condition.urine draining well.
[2019-10-03] MEDS: ONDANSETRON HCL INJ 2MG/ML 2ML 2 MG/ML VIAL IV PRN (04:58)
[2019-10-03] MEDS: PIPER-TAZ 3.375 GM 50 ML IV SCH ×4 (05:02→23:31)
[2019-10-03 06:20] LABS: BASOPHILS % 0.2 % (0.0-1.0); EOSINOPHILS % 0.4 % (0.0-6.0); HEMATOCRIT 35.4 % (38.2-49.6); HEMOGLOBIN 11.3 g/dL (14.0-18.0); LYMPHOCYTES # (AUTO) 0.8 (1.0-3.2); LYMPHOCYTES % 9.5 % (18.0-39.1); MEAN CORPUSCULAR HEMOGLOBIN 28.4 pg (28-32); MEAN CORPUSCULAR HGB CONC 31.9 g/dL (31-35); MEAN CORPUSCULAR VOLUME 88.9 fL (81-99); MONOCYTES % 12.1 % (4.4-11.3); NEUTROPHILS # (AUTO) 6.4 (2.1-6.9); PLATELET COUNT 326 x10e3/uL (140-360); RED BLOOD COUNT 3.98 x10e6/uL (4.3-5.7); RED CELL DISTRIBUTION WIDTH 13.7 % (11.7-14.4)
[2019-10-03 06:41] LABS: ANION GAP 11.6 mmol/L (8-16); BLOOD UREA NITROGEN 9 mg/dL (7-26); BUN/CREATININE RATIO 10 (6-25); CALCIUM 8.7 mg/dL (8.4-10.2); CARBON DIOXIDE 22 mmol/L (22-29); CHLORIDE 107 mmol/L (98-107); CREATININE, SERUM 0.93 mg/dL (0.72-1.25); EST GLOMERULAR FILTRATION RATE > 60 ML/MIN (60-); GLUCOSE 112 mg/dL (74-118); POTASSIUM 3.6 mmol/L (3.5-5.1); SODIUM 137 mmol/L (136-145)
--- NOTE | 2019-10-03 07:00 | NUR ---
BED SIDE SHIFT REPORT GIVEN TO THE ONCOMING RN.STABLE CONDITION.
--- NOTE | 2019-10-03 07:06 | NUR ---
walking rounds completed, change of shift report received from loader machine RN, pt resting, no signs of distress. will continue to assess.
[2019-10-03] MEDS: DEXTROSE 5%/LACTATED RINGERS 1,000 ML IV SCH ×2 (07:30→22:19)
[2019-10-03] MEDS ORDERED: HYDRALAZINE HCL 20 MG/ML VIAL IV PRN (08:30)
--- NOTE | 2019-10-03 09:34 | Progress Note ---
DATE: 10/03/2019 SUBJECTIVE: The patient with small bowel obstruction and underwent a laparotomy yesterday and transposition at the ostomy. The patient is currently in pain, has an NG tube. The patient's abdominal pain is rated as 8/10 in intensity and also complains of catheter pain in the Olivarez area. The patient otherwise is hemodynamically stable, but, however, requires continuum of care in the hospital. OBJECTIVE: VITAL SIGNS: Temperature is 97, pulse of 78, respirations of 18, blood pressure is 109/56, and pulse oximetry of 97%. HEENT: Normocephalic. The patient does have an NG-tube in. Slight erythema of the nares in the area of NG tube. CVS: S1 and S2 normal, regular rate and rhythm. ABDOMEN: Tender in the incisional site with drainage. EXTREMITIES: No clubbing. No cyanosis. No edema. LABORATORY VALUES: White count is 8.32 today, hemoglobin of 11.3, and hematocrit 35.6. Chemistries, pending. IMAGING STUDIES: None done. ASSESSMENT: Mr. Dale Arita with status post strangulated parastomal hernia with small bowel obstruction, status post repair and removal of ostomy and repositioning of the ostomy. PLAN: Continue with n.p.o., NG-tube in, Olivarez catheter for in's and out's. Hemodynamically stable at this time. We will have to need continuous monitoring and IV antibiotics. At this time, the patient meets criteria. We will continue keeping the patient in the hospital for monitoring. Plan, continue monitoring the patient. Further recommendation and clinical course, and also on surgery recommendations. MD RUSSELL Melendez/AMYL /[id number]
[2019-10-03] MEDS: METOPROLOL TARTRATE 25 MG TAB PO SCH ×3 (12:00→17:28)
[2019-10-03] MEDS: ENOXAPARIN SOD INJ 60 MG/0.6 ML SYR SC SCH (17:28)
--- NOTE | 2019-10-03 17:41 | NUR ---
70 mL emptied from ostomy bag.
--- NOTE | 2019-10-03 19:00 | NUR ---
RECEIVED THE PT IN REPORT.LYEING IN THE BED.STABLE CONDITION.
[2019-10-03] MEDS: PANTOPRAZOLE 40 MG 10ML VIAL IV SCH (20:39)
--- NOTE | 2019-10-03 21:00 | NUR ---
Assessment done.aaox3.no resp.distress.ng tube connected to low cont.wall suction.dressing dry.iv fluid running.ernst care given.ileostomy bag in place.ernst in place.bed locked and in lowest position.phone and call light within reach.instructed to call for assistance as needed.
[2019-10-04] VITALS (7 sets, daily range): BP systolic 121–130; BP diastolic 57–71
[2019-10-04] MEDS: HYDROMORPHONE 1MG/1ML INJ IV PRN ×7 (00:08→19:51)
[2019-10-04] MEDS: METRONIDAZOLE 500MG/NS 100ML 100 ML IV SCH ×4 (00:09→18:55)
[2019-10-04] MEDS: SODIUM CHLORIDE 0.9% 250ML IRRIG IR SCH ×6 (00:52→21:00)
[2019-10-04] MEDS: DEXTROSE 5%/LACTATED RINGERS 1,000 ML IV SCH ×3 (02:52→22:25)
[2019-10-04] MEDS: PIPER-TAZ 3.375 GM 50 ML IV SCH ×4 (05:04→23:50)
[2019-10-04] MEDS: METOPROLOL TARTRATE 25 MG TAB PO SCH ×2 (06:00)
--- NOTE | 2019-10-04 06:30 | NUR ---
D/c sujata @0630am.due to void.ileostomy bag emptied.received new orders from .
--- NOTE | 2019-10-04 06:32 | NUR ---
MARTINEZ CATHETER TIP WAS INTACT.PT TOLERATED WELL.STABLE CONDITION.
[2019-10-04 06:46] LABS: BASOPHILS % 0.3 % (0.0-1.0); EOSINOPHILS # (AUTO) 0.1 (0.0-0.4); EOSINOPHILS % 1.5 % (0.0-6.0); HEMATOCRIT 35.8 % (38.2-49.6); HEMOGLOBIN 11.6 g/dL (14.0-18.0); LYMPHOCYTES # (AUTO) 0.8 (1.0-3.2); LYMPHOCYTES % 9.1 % (18.0-39.1); MEAN CORPUSCULAR HEMOGLOBIN 28.4 pg (28-32); MEAN CORPUSCULAR HGB CONC 32.4 g/dL (31-35); MEAN CORPUSCULAR VOLUME 87.7 fL (81-99); MONOCYTES # (AUTO) 0.9 (0.2-0.8); MONOCYTES % 9.9 % (4.4-11.3); NEUTROPHILS # (AUTO) 7.2 (2.1-6.9); NEUTROPHILS % 78.5 % (38.7-80.0); PLATELET COUNT 319 x10e3/uL (140-360); RED BLOOD COUNT 4.08 x10e6/uL (4.3-5.7); RED CELL DISTRIBUTION WIDTH 13.8 % (11.7-14.4)
[2019-10-04 06:51] LABS: ANION GAP 10.8 mmol/L (8-16); BLOOD UREA NITROGEN 6 mg/dL (7-26); BUN/CREATININE RATIO 7 (6-25); CALCIUM 8.8 mg/dL (8.4-10.2); CARBON DIOXIDE 26 mmol/L (22-29); CHLORIDE 104 mmol/L (98-107); CREATININE, SERUM 0.91 mg/dL (0.72-1.25); EST GLOMERULAR FILTRATION RATE > 60 ML/MIN (60-); GLUCOSE 114 mg/dL (74-118); POTASSIUM 3.8 mmol/L (3.5-5.1); SODIUM 137 mmol/L (136-145)
--- NOTE | 2019-10-04 07:00 | NUR ---
Bed side shift report given to the oncoming Rn.stable condition.
--- NOTE | 2019-10-04 07:11 | NUR ---
walking rounds completed and shift change report received from production shift supervisor RN. pt resting, in stable condition.
--- NOTE | 2019-10-04 09:12 | Progress Note ---
DATE: 10/04/2019 SUBJECTIVE: The patient is status post transposition of the ileostomy and bowel, and also laparotomy for parastomal hernia with small bowel obstruction. Currently, the patient's ileostomy is put about 70 mL as I walked in. The patient complains of some pain in the abdominal area and the peristomal area. Continues to have some nasal pain. The patient is currently on nasogastric tube to continuous suction. OBJECTIVE: VITAL SIGNS: Temperature is 98.5, pulse of 109, respirations of 21, blood pressure is 123/71, and pulse oximetry of 99%. HEENT: Normocephalic, atraumatic. NG tube in place. CVS: S1 and S2. Irregular. Tachy. ABDOMEN: Tender. Bowel sounds are very sluggish. Ileostomy output noted. EXTREMITIES: No clubbing, no cyanosis, no edema. LABORATORY VALUES: Today's white count is 9.6, hemoglobin of 11.6, and hematocrit 35.8. Chemistries are pending, but yesterday's chemistries were normal. IMAGING STUDIES: Not done. ASSESSMENT: A 69-year-old gentleman with, 1. Strangulated parastomal hernia status post repair and removal of ostomy and repositioning. 2. Atrial fibrillation with rapid ventricular response. 3. Hypertension. 4. Hyperlipidemia. PLAN: Continue on NG tube, n.p.o., strict in's and out's. The patient will continue on IV antibiotic, Flagyl has been added. We will go ahead and give him IV metoprolol 2.5 mg at this time and has asked nursing to get every 6 hours until rate is controlled. Further recommendation per clinical course. We will continue monitoring the patient. Dr. Duke Rehman is on-call consult along with Dr. Crowe. Further recommendation per clinical course. We will continue to monitor the patient's progress. MD RUSSELL Melendez/YASH /[id number]
[2019-10-04] MEDS: METOPROLOL TARTRATE INJ 1 MG/ML VIAL IV SCH ×2 (11:51→18:16)
--- NOTE | 2019-10-04 14:25 | NUR ---
Visit made by the BLAZE Estrellalain. Sld Educational Aide provided pastoral presence, prayer, hospitality, and supportive listening. Sld Educational Aide informed pt/family of the scope of [employer] and availability. MARIXA PARKER Sld Educational Aide Spiritual Care Department O: [phone] Pager: [phone] ([phone] number calling from)
--- NOTE | 2019-10-04 17:40 | NUR ---
pt still has not voided since ernst d/c'd this AM; pt states he does not feel the urge to urinate. bedside bladder scan showed maximum of 192 mL of retained urine. Dr. Bradly Crowe came to bedside; states we will d/c the pt's NG tube and give pt PO fluids. If pt has not urinated within the next 2-3 hours, we will have to replace the ernst.
--- NOTE | 2019-10-04 18:12 | NUR ---
NG tube removed per MD's orders.
[2019-10-04] MEDS: ENOXAPARIN SOD INJ 60 MG/0.6 ML SYR SC SCH (18:19)
[2019-10-04] MEDS: PANTOPRAZOLE 40 MG 10ML VIAL IV SCH (21:41)
[2019-10-05] VITALS (8 sets, daily range): BP systolic 122–147; BP diastolic 58–75
[2019-10-05] MEDS: METRONIDAZOLE 500MG/NS 100ML 100 ML IV SCH ×4 (00:20→20:00)
[2019-10-05] MEDS: SODIUM CHLORIDE 0.9% 250ML IRRIG IR SCH (01:00)
[2019-10-05] MEDS: HYDROMORPHONE 1MG/1ML INJ IV PRN ×2 (01:50→10:15)
[2019-10-05] MEDS: PIPER-TAZ 3.375 GM 50 ML IV SCH ×4 (05:30→23:30)
[2019-10-05] MEDS: METOPROLOL TARTRATE INJ 1 MG/ML VIAL IV SCH ×4 (05:43→17:56)
[2019-10-05 06:18] LABS: BASOPHILS % 0.2 % (0.0-1.0); EOSINOPHILS # (AUTO) 0.2 (0.0-0.4); EOSINOPHILS % 2.4 % (0.0-6.0); HEMATOCRIT 33.8 % (38.2-49.6); HEMOGLOBIN 10.9 g/dL (14.0-18.0); LYMPHOCYTES % 10.8 % (18.0-39.1); MEAN CORPUSCULAR HEMOGLOBIN 28.6 pg (28-32); MEAN CORPUSCULAR HGB CONC 32.2 g/dL (31-35); MEAN CORPUSCULAR VOLUME 88.7 fL (81-99); MONOCYTES # (AUTO) 0.8 (0.2-0.8); MONOCYTES % 9.2 % (4.4-11.3); NEUTROPHILS # (AUTO) 7.1 (2.1-6.9); NEUTROPHILS % 77.1 % (38.7-80.0); PLATELET COUNT 324 x10e3/uL (140-360); RED BLOOD COUNT 3.81 x10e6/uL (4.3-5.7); RED CELL DISTRIBUTION WIDTH 13.6 % (11.7-14.4)
[2019-10-05 06:31] LABS: ANION GAP 9.6 mmol/L (8-16); BLOOD UREA NITROGEN 6 mg/dL (7-26); BUN/CREATININE RATIO 7 (6-25); CALCIUM 8.9 mg/dL (8.4-10.2); CARBON DIOXIDE 27 mmol/L (22-29); CHLORIDE 106 mmol/L (98-107); CREATININE, SERUM 0.91 mg/dL (0.72-1.25); EST GLOMERULAR FILTRATION RATE > 60 ML/MIN (60-); GLUCOSE 116 mg/dL (74-118); POTASSIUM 3.6 mmol/L (3.5-5.1); SODIUM 139 mmol/L (136-145)
--- NOTE | 2019-10-05 07:00 | NUR ---
BEDSIDE SHIFT REPORT RECEIVED FROM THE TRADEMARK PARALEGAL RN. EDUCATED PT ABOUT FALL PRECAUTIONS. CALL LIGHT WITH IN EASY REACH. INSTRUCTED PT TO USE CALL LIGHT FOR ALL THE NEEDS. PT VERBALIZED UNDERSTANDING. AT BEDSIDE. BED IS LOW AND LOCKED. SIDE RAILS X2. BED ALARM IS ON. PT DENIES NEEDS AT THIS TIME.
[2019-10-05] MEDS: DEXTROSE 5%/LACTATED RINGERS 1,000 ML IV SCH (11:47)
[2019-10-05] MEDS ORDERED: HYDROMORPHONE 1MG/1ML INJ IV PRN (12:00)
[2019-10-05] MEDS: HYDROCODONE/APAP 7.5MG-325MG 1 EA TAB PO PRN ×2 (16:06→22:40)
[2019-10-05] MEDS: ENOXAPARIN SOD INJ 60 MG/0.6 ML SYR SC SCH (16:06)
--- NOTE | 2019-10-05 19:00 | NUR ---
BEDSIDE SHIFT REPORT GIVEN TO THE CUTTING MACHINE FIXER RN. PT DENIED FURTHER NEEDS.
[2019-10-05] MEDS: PANTOPRAZOLE 40 MG 10ML VIAL IV SCH (21:28)
[2019-10-06] VITALS (7 sets, daily range): BP systolic 125–162; BP diastolic 57–78
[2019-10-06] MEDS: METOPROLOL TARTRATE INJ 1 MG/ML VIAL IV SCH ×4 (00:05→17:35)
[2019-10-06] MEDS: DEXTROSE 5%/LACTATED RINGERS 1,000 ML IV SCH (05:30)
[2019-10-06] MEDS: PIPER-TAZ 3.375 GM 50 ML IV SCH ×3 (05:30→17:35)
[2019-10-06] MEDS: METRONIDAZOLE 500MG/NS 100ML 100 ML IV SCH ×4 (05:59→18:04)
--- NOTE | 2019-10-06 07:00 | NUR ---
RECEIVED PATIENT AWAKE RESTING IN BED NO S/S OF DISTRESS. BED LOW, WHEELS LOCKED, SIDE RAILS X2. CALL LIGHT IN REACH WILL CONTINUE TO MONITOR PATIENT.
[2019-10-06] MEDS: HYDROCODONE/APAP 7.5MG-325MG 1 EA TAB PO PRN ×2 (10:49→20:00)
--- NOTE | 2019-10-06 13:45 | NUR ---
Visit made by the Spiritual Care Department Pastoral Visitor, Carolin Brower. PV provided pastoral presence, prayer, hospitality, and supportive listening. Pastoral Visitor informed pt/family of the scope of [employer] and availability. MARIXA PARKER Craft Recruiter Spiritual Care Department O: [phone] Pager: [phone] ([phone] number calling from)
[2019-10-06] MEDS: ENOXAPARIN SOD INJ 60 MG/0.6 ML SYR SC SCH (17:35)
[2019-10-06] MEDS: PANTOPRAZOLE 40 MG 10ML VIAL IV SCH (20:01)
[2019-10-07] VITALS: BP 138/65
[2019-10-07] MEDS: METRONIDAZOLE 500MG/NS 100ML 100 ML IV SCH ×4 (00:30→17:44)
[2019-10-07] MEDS: DEXTROSE 5%/LACTATED RINGERS 1,000 ML IV SCH ×2 (03:34→17:09)
[2019-10-07 04:00] VITALS: BP 174/86
[2019-10-07] MEDS: PIPER-TAZ 3.375 GM 50 ML IV SCH ×4 (05:30→17:09)
[2019-10-07] MEDS: METOPROLOL TARTRATE INJ 1 MG/ML VIAL IV SCH ×4 (05:58→17:09)
--- NOTE | 2019-10-07 07:00 | NUR ---
RECEIVED PATIENT AWAKE RESTING IN BED AT THIS TIME NO S/S OF DISTRESS. BED LOW, WHEELS LOCKED, SIDE RAILS X2. CALL LIGHT IN REACH WILL CONTINUE TO MONITOR PATIENT.
--- NOTE | 2019-10-07 07:41 | Progress Note ---
DATE: 10/07/2019 SUBJECTIVE: A 69-year-old male, who comes in with small bowel obstruction, status post ileostomy takedown with repositioning. The patient is currently doing much better. Eating solid foods. Ileostomy has residue in it. No complaints. No chest pain. He does complain some headache, resolved with the medication. Fluid resuscitation ongoing. The patient is still on metoprolol IV injections. We will switch to p.o. today. The patient is currently walking and doing much better. Physical therapy is working with him. OBJECTIVE: VITAL SIGNS: Temperature is 97.9, pulse 66, respirations of 18, blood pressure is 174/86, pulse oximetry of 95%. HEENT: Normocephalic, atraumatic. Pupils are reactive to light and accommodation. CVS: S1 and S2 normal. Regular rate and rhythm. ABDOMEN: Nontender, nondistended. Previous ileostomy takedown noted and new ileostomy good output. EXTREMITIES: No clubbing, no cyanosis, no edema. LABORATORY VALUES: White count is 9.18, hemoglobin of 10.9, hematocrit of 33.8, no left shift present. Chemistry; sodium of 139, potassium 3.6, BUN of 6, creatinine 0.91. IMAGING STUDIES: None done. ASSESSMENT: Mr. Dale Arita is a 69-year-old male with: 1. Small bowel obstruction, status post parastomal hernia repair and removal of ostomy and repositioning. 2. Atrial fibrillation, resolved. 3. Hypertension. 4. Hyperlipidemia. PLAN: Plan is to discharge him today. The patient to resume all his home medications as well as no changes. Pain medications as needed. Further recommendation per clinical course. The patient to follow up with his primary care physician and Dr. Crowe in about a week's time. Donald Rene MD ASJ/MODL /[id number]
[2019-10-07 07:50] VITALS: BP 146/82
[2019-10-07 08:05] VITALS: BP 146/82
[2019-10-07 11:54] VITALS: BP 143/75
--- NOTE | 2019-10-07 12:27 | NUR ---
IMM explained to patient, patient signed,copy to patient,copy to chart
[2019-10-07] MEDS: HYDROCODONE/APAP 7.5MG-325MG 1 EA TAB PO PRN (12:52)
--- NOTE | 2019-10-07 14:17 | NUR ---
Nutrition Intervention Note RD Recommendation(s) for Physician: -Consider GI soft diet per MD. Plan of Care: RD following, monitoring for tolerance and adequacy Nutrition reason for involvement: Follow up RD Assessment 10/07: Follow up: pt was seen resting in his chair, family at bedside. The pt has been advanced to a diet and has been tolerating it per pt, he is just taking it slow, he finished 90% of his B this morning per meal assessment. Pt denied N/V at this time. Per MD-possible d/c today. Will continue to monitor. 10/02: Follow up: Pt was seen resting in bed with family at bedside. Pt reported he was started on liquids yesterday but did not tolerate them well. He stated he is not dealing with any N/V currently and has yet to have a BM. Plan is for surgery today NGT and IV fluids was not successful. Spoke to nurse regarding initiation of TPN d/t the pts minimal intake, nurse reported he would speak with the MD. Will continue to monitor. 09/28 - 69yo M, who was admitted for SBO. KUB showed improvement in SBO. Witnessed pt ambulating independently on the hallway. NPO x 4 days. +NGT to LIWS. No BM from ileostomy yet. Pt denied any flatus. Pt stated that he will need surgery (?). Prior to admission, pt was eating and drinking well. Pt has lost over 40lbs intentionally through lifestyle changes. No other complains at this time. Will continue to monitor and follow. Principal Problems/Diagnoses: SBO PMH: ulcerative colitis, hypertension, atrial fibrillation, hyperlipidemia, and hypertension. GI: ileostomy, Abd: soft, non tender, Round Skin: no pressure ulcer noted IVF: D5W and LR at 50 ml/hr (60 gram dex 204 kcal) Labs: 10/07: no new labs 10/02: no new labs 10/01: Na 142, K 3.8, Cl 109, CO2 23, BUN 8, Creat .91, Gluc 94, Ca 8.9 (09/28) Cl 110 H, Mg 2.2 H Meds: pepcid,lopressor, KCl , zofran, steroid, abx, protonix Ht: 70in Wt: 191lb BMI: 27.4kg/m2 IBW: 166lb +/- 10% Malnutrition Evaluation (09/28/2019) The patient does not meet criteria for a specified degree of malnutrition at this time. Will re-evaluate at follow-up as appropriate. Nutrition Prescription (Diet Order): regular Estimated Nutritional Needs: Calories: 2175 2610kcal (25-30kcal/kg/d) Weight used: CBW Protein: 87 104g (1-1.5g/kg/d) Weight used: CBW Diet Adequacy meeting calorie needs, meeting protein needs Tolerance: tolerating po Diet Education Needs Assessment: Diet education indicated, but patient not appropriate for education at this time. Nutrition Care Level: mod Nutrition Diagnosis: Altered GI function related to SBO as evidenced by pt requiring PN as main source of nutrition. Goal: Patient will meet 75-100% of estimated needs by follow up Progress: Not Progressing Interventions: IVF, Prescription medications, modified diet (fiber) Monitoring/Evaluation: Total energy intake, Total protein intake, IVF, Prescription medication, Weight change Signed: Vera Barba RD, MILI
[2019-10-07 15:59] VITALS: BP 148/85
[2019-10-07] MEDS: ENOXAPARIN SOD INJ 60 MG/0.6 ML SYR SC SCH (17:00)
[2019-10-07] MEDS ORDERED: NORCO 7.5-3251 EACH PO (18:55)
[2019-10-07] MEDS ORDERED: LEVAQUIN500 MG PO (18:55)
--- NOTE | 2019-10-07 19:00 | NUR ---
REMOVED PATIENTS IV. CATHETER TIP INTACT AND PRESSURE DRESSING APPLIED.
--- NOTE | 2019-10-07 19:20 | NUR ---
PATIENT DISCHARGED FROM FACILITY. PATIENT GATHERED ALL PERSONAL BELONGINGS, DISCHARGE INSTRUCTIONS GIVEN TO PATIENT. PATIENT LEFT UNIT IN WHEELCHAIR AND WENT HOME VIA PRIVATE AUTO. NO SIGNS OF DISTRESS WHEN LEAVING FACILITY.
--- NOTE | 2019-11-18 19:50 | Discharge Summary ---
HOSPITAL COURSE: This patient came to the hospital with small bowel obstruction from parastomal hernia. The patient was kept n.p.o. NG tube was placed in. Surgical consult was done. The patient continued to put out from the NG, but however the patient's symptoms did not get any better and once this was deemed, a transfer to [facility] was initiated but was denied. The patient also had paroxysmal atrial fibrillation. Hypertension was controlled with medication. A consult with Dr. Rehman, lan administrator done too. The patient underwent surgery with Dr. Crowe. Metoprolol and anticoagulation were given to the patient. Once surgery was done, the patient was feeling better and the patient was discharged home. FINAL DIAGNOSIS: Small-bowel obstruction secondary to parastomal hernia, status post surgery. The patient was feeling better. Discharged home. SECONDARY DIAGNOSES: 1. Atrial fibrillation. 2. Hypertension. For further information, look into the chart. For medicines on discharge, look into the medical records. MD RUSSELL Melendez/YASH /[id number]
== END 2019-10-07 19:20 | disposition home or self-care (01) | DRG 330 ==
LOC: ER 18:44 → ERHOLD 09-24 00:12 → IMCU 09-24 15:07 → MED/SURG 09-24 15:20
PROVIDERS: ADMIT Family Medicine; ATTEND Family Medicine
PROC: 0DSB0ZZ Reposition Ileum, Open Approach (ICD-10-PCS; 2019-10-02)
PROC: 0WQF0ZZ Repair Abdominal Wall, Open Approach (ICD-10-PCS; principal; 2019-10-02 14:00)
PROC: 0DB80ZZ Excision of Small Intestine, Open Approach (ICD-10-PCS; 2019-10-02 14:00)
DX: K43.4 Parastomal hernia with gangrene (principal); N17.9 Acute kidney failure, unspecified; K56.51 Intestinal adhesions [bands], with partial obstruction; I10 Essential (primary) hypertension; I25.10 Atherosclerotic heart disease of native coronary artery without angina pectoris; Z90.49 Acquired absence of other specified parts of digestive tract; Z98.0 Intestinal bypass and anastomosis status; Z93.2 Ileostomy status; E78.5 Hyperlipidemia, unspecified; I48.0 Paroxysmal atrial fibrillation; D64.9 Anemia, unspecified; K21.9 Gastro-esophageal reflux disease without esophagitis; R51 Headache; F41.9 Anxiety disorder, unspecified
CPT/HCPCS: 36415; 74018; 74022; 74177; 80048; 80053; 81001; 82550; 82553; 83690; 83735; 84484; 85025; 88307; 93005; 96360; 96361; 99284; J0330; J0360; J1170; J1650; J2001; J2250; J2270; J2405; J2543; J3010; J7030; J7050; Q9967

== ENCOUNTER → 2020-12-10 | Outpatient (CLI) | payer MEDICARE, OTHER ==
[~2020-12-10] MED LIST: ABILIFY5 MG PO; ACYCLOVIR200 MG PO; CENTRUM MEN'S1 EACH; LEVAQUIN500 MG PO; LISINOPRIL10 MG PO; METOPROLOL TART50 MG PO; NORCO 7.5-3251 EACH PO; PRAVASTATIN SOD40 MG PO; PRED FORTE; TRILIPIX135 MG PO; VITAMIN D32000 UNI1
== END ==
LOC: MRI 12:33
PROVIDERS: ATTEND Specialist
DX: S83.222A Peripheral tear of medial meniscus, current injury, left knee, initial encounter (principal); M25.562 Pain in left knee

== ENCOUNTER → 2020-12-23 | Day surgery (SDC) | payer MEDICARE, OTHER ==
[2020-12-21 11:15] LABS: BASOPHILS % 0.3 % (0.0-1.0); EOSINOPHILS # (AUTO) 0.2 (0.0-0.4); EOSINOPHILS % 2.7 % (0.0-6.0); HEMATOCRIT 37.8 % (38.2-49.6); HEMOGLOBIN 12.3 g/dL (14.0-18.0); LYMPHOCYTES # (AUTO) 1.4 (1.0-3.2); LYMPHOCYTES % 23.2 % (18.0-39.1); MEAN CORPUSCULAR HEMOGLOBIN 29.1 pg (28-32); MEAN CORPUSCULAR HGB CONC 32.5 g/dL (31-35); MEAN CORPUSCULAR VOLUME 89.6 fL (81-99); MONOCYTES # (AUTO) 0.8 (0.2-0.8); MONOCYTES % 13.5 % (4.4-11.3); NEUTROPHILS # (AUTO) 3.6 (2.1-6.9); NEUTROPHILS % 59.8 % (38.7-80.0); PLATELET COUNT 349 x10e3/uL (140-360); RED BLOOD COUNT 4.22 x10e6/uL (4.3-5.7); RED CELL DISTRIBUTION WIDTH 13.3 % (11.7-14.4)
[~2020-12-23] MED LIST changes: +ACETAMINOPHEN/CODEINE 300MG - 30MG TAB ONE; +BUPIVACAINE HCL 0.5% INJ 30 ML VIAL INJ ONE; +CEFAZOLIN SOD 1 GM/NS 50ML 100 ML IV ONE; +DEXAMETHASONE SOD PHOS INJ 4 MG/ML VIAL ONE; +FENTANYL CITRATE/PF 100MCG/2 ML INJ ONE; +KETOROLAC TROMETHAMINE 30 MG/ML VIAL ONE; +LABETALOL HCL 5 MG/ML 20ML VIAL ONE; +LIDOCAINE HCL 2% LOCAL INJ 5 ML SDV VIAL INJ ONE; +MIDAZOLAM HCL 2 MG/2 ML VIAL ONE; +ONDANSETRON HCL INJ 2MG/ML 2ML 2 MG/ML VIAL ONE; +PROPOFOL IV EMULSION 10 MG/ML 20 ML VIAL ONE; +SEVOFLURANE INHAL SOLN 250 ML PEN BTL ONE
[2020-12-23 09:20] VITALS: BP 118/81
== END | disposition home or self-care (01) ==
LOC: OR 05:35
PROVIDERS: ATTEND Specialist
DX: S83.222A Peripheral tear of medial meniscus, current injury, left knee, initial encounter (principal); S83.282A Other tear of lateral meniscus, current injury, left knee, initial encounter; M17.12 Unilateral primary osteoarthritis, left knee; M22.42 Chondromalacia patellae, left knee; I10 Essential (primary) hypertension; J45.909 Unspecified asthma, uncomplicated; K51.90 Ulcerative colitis, unspecified, without complications; X58.XXXA Exposure to other specified factors, initial encounter; Z01.810 Encounter for preprocedural cardiovascular examination; Z01.812 Encounter for preprocedural laboratory examination; Z01.818 Encounter for other preprocedural examination; Z20.822 Contact with and (suspected) exposure to COVID-19
CPT/HCPCS: 29880; 36415; 71046; 85025; 93005; J0690; J2250; J3010; U0002; J1100; J1885; J2001; J2405

== ENCOUNTER 2021-02-11 08:55 | Outpatient (RCR) | payer MEDICARE, OTHER ==
[~2021-02-11 08:55] MED LIST changes: -ACETAMINOPHEN/CODEINE 300MG - 30MG TAB ONE; -BUPIVACAINE HCL 0.5% INJ 30 ML VIAL INJ ONE; -CEFAZOLIN SOD 1 GM/NS 50ML 100 ML IV ONE; -DEXAMETHASONE SOD PHOS INJ 4 MG/ML VIAL ONE; -FENTANYL CITRATE/PF 100MCG/2 ML INJ ONE; -KETOROLAC TROMETHAMINE 30 MG/ML VIAL ONE; -LABETALOL HCL 5 MG/ML 20ML VIAL ONE; -LIDOCAINE HCL 2% LOCAL INJ 5 ML SDV VIAL INJ ONE; -MIDAZOLAM HCL 2 MG/2 ML VIAL ONE; -ONDANSETRON HCL INJ 2MG/ML 2ML 2 MG/ML VIAL ONE; -PROPOFOL IV EMULSION 10 MG/ML 20 ML VIAL ONE; -SEVOFLURANE INHAL SOLN 250 ML PEN BTL ONE
== END 2021-02-12 ==
LOC: PT 08:55
PROVIDERS: ATTEND Specialist
DX: M17.12 Unilateral primary osteoarthritis, left knee (principal); Z47.89 Encounter for other orthopedic aftercare; S83.222D Peripheral tear of medial meniscus, current injury, left knee, subsequent encounter; M25.562 Pain in left knee; M62.81 Muscle weakness (generalized)
CPT/HCPCS: 97139

== ENCOUNTER 2021-02-19 01:48 | Emergency (ER) | payer OTHER, MEDICARE ==
[~2021-02-19] VITALS: Ht 177.8 cm; Wt 83.5 kg
[2021-02-19 04:09] VITALS: BP 162/72
== END 2021-02-19 04:09 | disposition home or self-care (01) ==
LOC: FSED 02:08
DX: S52.502A Unspecified fracture of the lower end of left radius, initial encounter for closed fracture (principal); S20.212A Contusion of left front wall of thorax, initial encounter; S30.1XXA Contusion of abdominal wall, initial encounter; M25.512 Pain in left shoulder; W01.0XXA Fall on same level from slipping, tripping and stumbling without subsequent striking against object, initial encounter; Y93.01 Activity, walking, marching and hiking
CPT/HCPCS: 71250; 74176; 99283

== ENCOUNTER 2021-04-29 11:48 | Outpatient (RCR) | payer MEDICARE, OTHER | END 2021-05-15 | LOC: OT 11:48 | PROVIDERS: ATTEND Specialist | DX: S52.532D Colles' fracture of left radius, subsequent encounter for closed fracture with routine healing (principal) ==